=== PATIENT | male | born 1965 | race African-American/Black ===

== ENCOUNTER 2017-05-12 06:59 | Inpatient (IN) ==
--- NOTE | 2017-05-12 07:26 | EKG Report ---
Stationary ECG Study [facility] ER Test Date: 05/12/2017 7:17:50 AM Pat Name: PETTY ALVARENGA Department: Room: Gender: M [employer]: : 1965 Requested by: Castillo Ogden Order Number: [id number] Reading MD: CAROLA ROSE Intervals [place] Rate: 62 P: 86 [place]: 153 QRS: 76 QRSD: 101 T: 90 QT: 498 QTc: 504 Interpretive Statements SINUS RHYTHM PROLONGED QT INTERVAL Electronically Signed On 05-12-17 18:18:22 CDT by CAROLA ROSE [email or web address]
--- NOTE | 2017-05-12 07:53 | XRay Report ---
XR chest 1V portable Indication: Shortness of breath Comparison: 06 May 2017 Findings: The heart and mediastinum are stable in size and configuration. The pulmonary vascularity is slightly increased with bilateral increased interstitial lung density. No other lung infiltrates, effusions, pneumothorax or other abnormality is demonstrated. Impression: Findings suggest mild cardiac decompensation. PROCEDURE INTERPRETED AT [facility] DEPARTMENT OF RADIOLOGY Final Report Signed by: Dr. Yasmani Mejia
[2017-05-12 08:17] LABS: Basophils # 0.1 10*3/uL (0.0-0.2); Basophils % 0.7 % (0.0-0.8); Eosinophils # 0.2 10*3/uL (0.0-0.87); Eosinophils % 2.7 % (0.00-10.9); Hematocrit 26.7 VOL% (42.0-52.0); Hemoglobin 8.3 GM/DL (14.0-18.0); Immature Granulocytes % 0.6 %; Immature Granulocytes Absolute 0.05 #; Lymphocytes # 1.2 10*3/uL (1.4-4.0); Lymphocytes % 15.4 % (21.2-54.2); Mean Corpuscular HGB Conc 31.1 GM/DL (32-36); Mean Corpuscular Hemoglobin 29 PG (27-34); Mean Corpuscular Volume 94.3 FL (87-102); Mean Platelet Volume 10.6 FL (9.6-12.0); Monocytes # 0.4 10*3/uL (0.11-0.8); Monocytes % 5.4 % (1.7-12.7); NRBC # 0.03 10*3/uL; Neutrophils % 75.2 % (38.7-73.9); Platelet Count 156 T/CUMM (130-400); Red Blood Count 2.83 MC/CUMM (3.8-5.5); Red Cell Distribution Width 19.7 % (9.3-17.3)
[2017-05-12 09:19] LABS: Bilirubin,Total 0.9 MG/DL (0.2-1.0); Calcium 7.8 MG/DL (8.5-10.1); Total Protein 7.2 G/DL (6.4-8.3)
[2017-05-12 09:20] LABS: Albumin 3.2 G/DL (3.4-5.0); Osmolality,Calculated 288.5 MOS/KG (273-304); Potassium 4.1 MMOL/L (3.5-5.1); Troponin I Only 0.02 NG/ML (0.00-0.045)
[2017-05-12 09:25] LABS: Eosinophils 2 % (0-10); Lymphocytes 11 % (20-55); Segmented Neutrophils 83 % (50-85); Total Cells Counted 100
[2017-05-12 09:26] LABS: Hypochromasia 1+; Macrocytosis Slight; Ovalocytes Slight; Polychromasia Slight
[2017-05-12 09:27] LABS: Platelet Estimate Adequate
[2017-05-12] MEDS ORDERED: MORPHINE 2 MG/1 ML SYRINGE IV STA (11:05)
[2017-05-12] MEDS ORDERED: MORPHINE 2 MG/1 ML SYRINGE ONE (11:08)
--- NOTE | 2017-05-12 11:08 | Emergency Department Note ---
IBright Brittany, am scribing for, and in the presence of, Jon Arredondo MD 07:13. Arnulfo Patel Doug C, MD, personally performed the services described in this documentation, ascribed by Gracie Novoa in my presence, and it is both accurate and complete . Arrival - Arrival Chief Complaint: Non-Specific ED Nursing Triage Note: dialysis said that the pt went unresponsive and quit breathing. cpr was done on pt. pt was starting to talk when ems got there. pt is aao x 3at triage Mode of Arrival: Stretcher Limitations: No Limitations Source: Patient, RN Notes Reviewed - History of Present Illness HPI Narrative: Patient is a 52-year-old black male who is on dialysis this morning and he states that been going about 30 minutes when he felt hot. He states the next thing he knew people were standing around him an ambulance was there to pick him up. According to dialysis nurses he became unresponsive and apneic. CPR was begun at the scene but he eventually became responsive and states his only problem now is his chest is sore from his CPR. He had no shortness of breath, chest pain, nausea or diaphoresis prior to this event. He states he has noticed that he has been getting weak with dialysis for the last several treatments. Patient denies any shortness of breath presently has not had any nausea vomiting. Allergies/Adverse Reactions: Allergies Allergy/AdvReac Type Severity Reaction Status Date / Time No Known Allergies Allergy Verified 06/16/15 15:27 Home Medications: Home Medications Medication Instructions Recorded Confirmed Type Calcium Acetate [Phoslo] 667 mg PO MOWEFR 04/13/17 05/12/17 History Metoprolol Tartrate Tab [Lopressor 100 mg PO BID 04/13/17 05/12/17 History Tab] NIFEdipine XL TAB [Procardia Xl] 60 mg PO QAM 04/13/17 05/12/17 History Pro Renal Vitamin 1 tablet PO QOTHER DAY 04/13/17 05/12/17 History cloNIDine TAB [Catapres Tab] 0.2 mg PO BID 04/13/17 05/12/17 History Pantoprazole Tab [Protonix Tab] 40 mg PO QAM 05/06/17 05/12/17 History Review of System - Review of System 12 point system: reviewed and no additional remarkable complaints except as stated - Review of System Constitutional: Present: diaphoresis, other (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 Absent: chills, fever Eyes: Absent: vision change Head/Ears/Nose/Throat: Absent: nasal drainage, sore throat Respiratory: Present: respiratory distress Cardiovascular: Present: chest pain, other Gastrointestinal: Absent: abdominal pain, nausea, vomiting, diarrhea, constipation Genitourinary male: Absent: urgency, dysuria, frequency Musculoskeletal: Absent: arm pain, back pain, leg pain, neck pain Skin: Absent: rash Neurological: Absent: headache Psychiatric: Absent: anxiety, depression Hematological/Lymphatic: Absent: easy bleeding, easy bruising Medical,Surgical,& Family Hx - Medical History Cardio: History of: Hypertension No history of: Cardiac Dysrhythmia, CHF, [place], Pacemaker Neurology: No history of: Migraine, Seizures HEENT: No history of: Glaucoma Endocrine: History of: Diabetes Mellitus (NIDDM) (DIET CONTROLED) Renal: History of: Dialysis (MWF), Renal Failure (on hemodialysis) Genitourinary: History of: Bladder Problem (very ilttle urine) Gastrointestinal: History of: GERD No history of: Hepatitis, Liver Problems Hematology: History of: Anemia No history of: Blood Transfusion Reaction Other: History of: Miscellaneous Medical Problems (06/2014 Bacterial Meningitis) No history of: Anesthesia Reactions, Cancer - Surgical History Cardiac Surgeries: Patient Denies: Cardiac Catheterization, Carotid Endarterectomy HEENT Surgeries: Surgical HX of: Eye Surgery (laser) Patient denies: Carotid Endarterectomy, Tonsilectomy & Adenoidectomy Abdominal Surgeries: Surgical HX of: Cholecystectomy Patient denies: Appendectomy, Colonoscopy, EGD, Hernia Repair Orthopedic Surgeries: Patient denies;: Orthopedic Surgery - Family History Family History: Denies;: Family Cancer - Social History Smoking Status: Smoker, status unknown Frequency of Alcohol Use: None Type of Drug Use: None Exam Vital Signs: Vital Signs Temperature 97.0 F L 05/12/17 07:00 Pulse Rate 62 05/12/17 10:15 Respiratory Rate 20 05/12/17 10:15 Blood Pressure 158/85 05/12/17 10:15 O2 Sat by Pulse Oximetry 96 05/12/17 10:15 - General General appearance: alert, in no apparent distress - Head Head exam: Present: atraumatic, normocephalic, normal inspection - Eye Eye exam: Present: normal appearance, PERRL, EOMI - ENT ENT exam: Present: normal exam, normal oropharynx - Neck Neck exam: Present: normal inspection, full ROM, trachea midline - Chest Chest inspection: Present: symmetric chest wall rise, tenderness (CW tenderness to palpation) - Respiratory Respiratory exam: Present: normal lung sounds bilaterally, other (oxygen saturation of 89% on monitor) - Cardiovascular Cardiovascular exam: Present: regular rate, normal rhythm, normal heart sounds - Abdominal Exam Abdominal exam: Present: soft, normal bowel sounds. Absent: tenderness - Extremities Exam Extremities exam: Present: normal inspection - Back Exam Back exam: Present: normal inspection - Neurological Exam Neurological exam: Present: alert, oriented X3, CN II-XII intact. Absent: motor sensory deficit - Psychiatric Psychiatric exam: Present: normal affect, normal mood - Skin Skin exam: Present: warm, dry Course Course Narrative: Patient's clinical condition, laboratory and radiographic results were discussed Dr. Storm Ryan and Shante who was covering the hospitalist service. Patient will be evaluated for admission. Results - Labs CBC & BMP: 05/12/17 08:07 05/12/17 08:07 Lab Results: I have reviewed the patients labs Labs: Laboratory Tests 05/12/17 08:07 WBC 8.0 RBC 2.83 L Hgb 8.3 L Hct 26.7 L MCHC 31.1 L RDW 19.7 H Plt Count 156 Neut % (Auto) 75.2 H Lymph % (Auto) 15.4 L Lymph # (Auto) 1.2 L Laboratory Tests 05/12/17 05/12/17 08:07 08:07 Sodium 139 Potassium 4.1 Chloride 98 Carbon Dioxide 29 Anion Gap 16.1 H BUN 31 H Creatinine 9.43 H BUN/Creatinine Ratio 3.00 L Glucose 190 H Calcium 7.8 L ALT 14 L Alkaline Phosphatase 131 H B-Natriuretic Peptide 1083 H Albumin 3.2 L Globulin 4.0 H Albumin/Globulin Ratio 0.8 L Laboratory Tests 05/12/17 08:07 Total Counted 100 Segmented Neutrophils 83 Lymphocytes 11 L Monocytes 4 Eosinophils 2 Platelet Estimate Adequate Polychromasia Slight Hypochromasia 1+ Macrocytosis Slight Ovalocytes Slight - EKG EKG results: interpreted by ERMD, sinus rhythm (62 bpm 62 bpm), no acute changes - Diagnostic Findings Procedure: Chest x-ray: report reviewed by me (Findings suggest mild cardiac decompensation. ) Disposition Clinical Impression: Syncope Case discussed with: patient, patient's family Disposition: Still a Patient Condition: Stable Time of Disposition: 11:07
--- NOTE | 2017-05-12 11:39 | Hospitalist History & Physical ---
Assessment and Plan (1) Cardiac arrest, cause unspecified Status: Acute Assessment and plan: The patient was initially unresponsive and became asystole. CPR was initiated immediately and the patient's pulse was regained after 1 round. This occurred during the hemodialysis treatment. The patient reported that he had been scheduled for a cardiology consultation on next week. Initial troponins were noted at 0 0.020. We will obtain a echocardiogram and serial cardiac enzymes. Current Visit: Yes (2) Syncope Status: Acute Assessment and plan: The patient's syncopal episode was likely secondary to cardiac abnormality. We will obtain CT head for good measures. In addition, we will conduct a syncope workup. Current Visit: Yes (3) ESRD (end stage renal disease) on dialysis Status: Acute Assessment and plan: The patient's hemodialysis treatment was not completed due to the acute cardiac event. We have spoken with nephrology. Agree with nephrology's plan for continuation of hemodialysis this afternoon. Current Visit: No (4) Tobacco dependence Status: Acute Assessment and plan: Patient reports current nicotine use. Spoke with patient in great detail regarding the need to refrain from nicotine use. Patient acknowledges the need to refrain from nicotine use however is not interested in cessation at this time. Nicotine patch is ordered as needed during the clinical encounter. Current Visit: No History of Present Illness Chief complaint: Unresponsiveness History of present illness: This is a chronically ill 52-year-old male that presented to the ED at [facility] this morning via EMS for the further evaluation of unresponsiveness. The patient has a medical history significant for hypertension, end-stage renal disease, [id number] diabetes mellitus, gastroesophageal reflux disease, bacterial meningitis, current nicotine use, and anemia. Patient has a surgical history significant for laser eye surgery, cholecystectomy, and arterial venous fistula formation. Apparently, the patient was undergoing his dialysis treatment when the onset of symptoms occurred. The patient reported that he experienced an sudden increase in body temperature prompting him to summonds the nursing staff. Per EMS report, the patient became unresponsive and was found to be asystole. Cardiopulmonary resuscitation and oxygenation was initiated. The patient regained his pulse after 1 round of CPR. The patient was subsequently transported to [facility] for further evaluation. At the time of ED presentation, the patient was alert oriented and verbally responsive. The patient verbalized a complaint of chest discomfort but attributed to the recent CPR. He denied any significant cardiac episodes in the past. He reported no recent shortness of breath, nausea, chest pain, diaphoresis, or epigastric discomfort. In addition, the patient reported that he had been recently advised by his clinical review specialist Dr. Storm Ryan that he could possibly benefit from a cardiology consultation. He reported that the cardiology consultation is scheduled for next week. Labs were obtained at the time of ED presentation which were essentially remarkable for a hemoglobin of 8.3, hematocrit 26.7, platelet count of 156, BUN of 31, creatinine 9.43, glucose 190, calcium 7.8, troponin 0 0.20, and BNP at 1083. Chest x-ray reported mild cardiac decompensation. After brief discussion with both Dr. Arredondo and Dr. Sigala, the patient will be admitted to the hospitalist service for continuation of care. A nephrology and cardiology consultation has been requested to assist in the management of the patient during the clinical encounter. Home medications have been reviewed and reconciled. CODE STATUS discussed; patient is a FULL CODE. Home Medications Medication Instructions Recorded Confirmed Type Calcium Acetate [Phoslo] 667 mg PO MOWEFR 04/13/17 05/12/17 History Metoprolol Tartrate Tab [Lopressor 100 mg PO BID 04/13/17 05/12/17 History Tab] NIFEdipine XL TAB [Procardia Xl] 60 mg PO QAM 04/13/17 05/12/17 History Pro Renal Vitamin 1 tablet PO QOTHER DAY 04/13/17 05/12/17 History cloNIDine TAB [Catapres Tab] 0.2 mg PO BID 04/13/17 05/12/17 History Pantoprazole Tab [Protonix Tab] 40 mg PO QAM 05/06/17 05/12/17 History Allergies Allergy/AdvReac Type Severity Reaction Status Date / Time No Known Allergies Allergy Verified 06/16/15 15:27 Medical,Surgical,& Family Hx - Medical History Cardio: History of: Hypertension No history of: Cardiac Dysrhythmia, CHF, [place], Pacemaker Neurology: No history of: Migraine, Seizures HEENT: No history of: Glaucoma Endocrine: History of: Diabetes Mellitus (NIDDM) (DIET CONTROLED) Renal: History of: Dialysis (MWF), Renal Failure (on hemodialysis) Genitourinary: History of: Bladder Problem (very ilttle urine) Gastrointestinal: History of: GERD No history of: Hepatitis, Liver Problems Hematology: History of: Anemia No history of: Blood Transfusion Reaction Other: History of: Miscellaneous Medical Problems (06/2014 Bacterial Meningitis) No history of: Anesthesia Reactions, Cancer - Surgical History Cardiac Surgeries: Patient Denies: Cardiac Catheterization, Carotid Endarterectomy HEENT Surgeries: Surgical HX of: Eye Surgery (laser) Patient denies: Carotid Endarterectomy, Tonsilectomy & Adenoidectomy Abdominal Surgeries: Surgical HX of: Cholecystectomy Patient denies: Appendectomy, Colonoscopy, EGD, Hernia Repair Orthopedic Surgeries: Patient denies;: Orthopedic Surgery - Family History Family History: Denies;: Family Cancer - Social History Smoking Status: Smoker, status unknown Frequency of Alcohol Use: None Type of Drug Use: None Exam - Constitutional Vitals: Period Temp Pulse Resp BP Sys/Tran Pulse Ox Last 24 Hr 97.0 F-97.0 F 59-65 18-20 145-170/72-94 91-100 General appearance: normal weight, no acute distress - Head Head exam: Present: normal inspection, normocephalic - Eye Eye exam: Present: EOMI. Absent: conjunctival injection Pupils: Present: TRINY, normal accommodation - ENT ENT exam: Present: normal exam, normal external ear exam, normal oropharynx - Neck Neck exam: Present: normal inspection. Absent: lymphadenopathy, meningismus, tenderness, thyromegaly - Respiratory Respiratory exam: Present: chest wall tenderness, decreased breath sounds - Cardiovascular Cardiovascular exam: Present: regular rate and rhythm, other. Absent: bradycardia, carotid bruit, diastolic murmur, gallop, JVD, rubs, systolic murmur - GI/Abdominal GI/Abdominal exam: Present: normal bowel sounds, soft - Extremities Exam Extremities exam: Present: normal inspection, full ROM, other - Back Exam Back exam: Present: normal inspection - Neurological Exam Neurological exam: Present: alert, oriented X3, CN II-XII intact - Psychiatric Psychiatric exam: Present: normal affect, normal mood - Skin Skin exam: Present: normal color, warm, dry Results - Labs CBC & BMP: 05/12/17 08:07 05/12/17 08:07 Lab Results: I have reviewed the past 24 hour labs
[2017-05-12] MEDS ORDERED: GLUCAGON 1 MG VIAL IM PRN (12:06)
[2017-05-12] MEDS ORDERED: DEXTROSE 50% 25 GM/50 ML SYRINGE IV PRN (12:06)
[2017-05-12] MEDS ORDERED: SODIUM CHLORIDE 0.9% 250 ML IV PRN (12:09)
[2017-05-12] MEDS ORDERED: MAGNESIUM SULF RIDER 2 GM in PREMIX 1 EACH IV ONE (12:30)
--- NOTE | 2017-05-12 12:31 | EKG Report ---
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
--- NOTE | 2017-05-12 13:37 | Ultrasound Report ---
Carotid artery ultrasound Indication: Syncope Comparison: None available Color Doppler flow and spectral analysis was performed. Findings: Small amount of atherosclerotic plaque is present in both proximal internal carotid arteries. Right peak systolic velocity: Right CCA:70.3 cm/s. Right proximal Internal Carotid Artery is 58.6 cm/s. Ratio of flow is 1.1 Right distal Internal Carotid is 74.2 cm/s . Left peak systolic velocity: Left CCA:71.6 cm/s. Left proximal Internal carotid Artery is 54.6 cm/s . Ratio of flow is 1.2 Left distal Internal carotid Artery is 88.6cm/s Bilateral antegrade vertebral flow is seen. Impression: No evidence of hemodynamically significant stenosis is seen, 0-49% estimated stenosis. Consensus conference on the carotid ultrasound criteria used. Ultrasound images were captured and stored. PROCEDURE INTERPRETED AT [facility] DEPARTMENT OF RADIOLOGY Final Report Signed by: Dr. Yasmani Mejia
--- NOTE | 2017-05-12 13:39 | Ultrasound Report ---
Venous Doppler ultrasound bilateral lower extremities Indication: Cardiac arrest Comparison: None available Findings: No evidence of echogenic, noncompressible thrombus seen in the visualized veins of the extremities. Color Doppler venous waveform pattern is within normal limits. Impression: No evidence of deep venous thrombosis. Ultrasound images stored and captured. PROCEDURE INTERPRETED AT [facility] DEPARTMENT OF RADIOLOGY Final Report Signed by: Dr. Yasmani Mejia
--- NOTE | 2017-05-12 13:49 | Cardiology Consult Note ---
Assessment and Plan (1) Cardiac arrest, cause unspecified Status: Acute Assessment and plan: 52-year-old black male, presenting with an episode of unresponsiveness, which resolved with some minutes of CPR. No EKG. Normal troponin, no ischemic EKG changes. Recent onset, intermittent palpitations. Uncontrolled hypertension., End-stage renal disease on hemodialysis. -The events may have been syncope due to hypotension related to dialysis, although we cannot rule out true aborted SCD, likely due to bradyarrhythmic cause. -Echo. -He will need ischemic evaluation. Recheck troponin, rule out ACS. We can pursue a stress test. -If no reversible etiology, he will need an EP study plus minus long-term monitoring. Depending on the workup, he could be a candidate for primary prevention ICD, SICD given his ESRD -Poorly controlled hypertension. Increase nifedipine ER to 60 mg twice daily. -Borderline QTc prolongation resolved. Continue to monitor on telemetry. Avoid prolonging drugs. Current Visit: Yes (2) HTN (hypertension) Status: Acute Current Visit: Yes (3) ESRD (end stage renal disease) on dialysis Status: Acute Current Visit: No (4) Tobacco dependence Status: Acute Current Visit: No History of Present Illness - Data of Consult Patient: new to [facility] Consult date: 05/12/17 - Consult Narrative Reason for consult: syncope, ?cardiac arrest History of present illness: Mr. De Leon is a 52 year old black male, end-stage renal on hemodialysis, due to hypertensive renal disease. He is not aware of prior cardiac issues. Today, he was undergoing dialysis and suddenly felt unwell and became unresponsive. CPR was administered for 3 minutes and then he became responsive. He was not on a monitor and no shocks were delivered. Although there was a mention of asystole, no EKG documentation of arrhythmia. On admission, initial EKG showed borderline prolonged QTC of around 500 ms, now it is normal, with slightly peaked T waves. No major electrolyte abnormalities. He did not have chest pain prior to the event or recently, but the chest wall felt sore after CPR. He noted some palpitations, sometimes related to dialysis recently. He is still making some urine, denies shortness of breath with swelling. Troponin normal, BNP elevated, he is anemic. Reviewing his medical records, he is currently not on medications, that would significantly affect QTc. DVT study was normal, carotid ultrasound showed no significant stenosis. His blood pressure is usually poorly controlled. CC: Jones Jasso - Home Medications and Allergies Home Medications: Home Medications Medication Instructions Recorded Confirmed Type Calcium Acetate [Phoslo] 667 mg PO MOWEFR 04/13/17 05/12/17 History Metoprolol Tartrate Tab [Lopressor 100 mg PO BID 04/13/17 05/12/17 History Tab] NIFEdipine XL TAB [Procardia Xl] 60 mg PO QAM 04/13/17 05/12/17 History Pro Renal Vitamin 1 tablet PO QOTHER DAY 04/13/17 05/12/17 History cloNIDine TAB [Catapres Tab] 0.2 mg PO BID 04/13/17 05/12/17 History Pantoprazole Tab [Protonix Tab] 40 mg PO QAM 05/06/17 05/12/17 History Allergies/Adverse Reactions: Allergies Allergy/AdvReac Type Severity Reaction Status Date / Time No Known Allergies Allergy Verified 06/16/15 15:27 12 point system: reviewed and no additional remarkable complaints except as stated Medical,Surgical,& Family Hx - Medical History Cardio: History of: Hypertension No history of: Cardiac Dysrhythmia, CHF, [place], Pacemaker Neurology: No history of: Migraine, Seizures HEENT: No history of: Glaucoma Endocrine: History of: Diabetes Mellitus (NIDDM) (DIET CONTROLED) Renal: History of: Dialysis (MWF), Renal Failure (on hemodialysis) Genitourinary: History of: Bladder Problem (very ilttle urine) Gastrointestinal: History of: GERD No history of: Hepatitis, Liver Problems Hematology: History of: Anemia No history of: Blood Transfusion Reaction Other: History of: Miscellaneous Medical Problems (06/2014 Bacterial Meningitis) No history of: Anesthesia Reactions, Cancer - Surgical History Cardiac Surgeries: Patient Denies: Cardiac Catheterization, Carotid Endarterectomy HEENT Surgeries: Surgical HX of: Eye Surgery (laser) Patient denies: Carotid Endarterectomy, Tonsilectomy & Adenoidectomy Abdominal Surgeries: Surgical HX of: Abdominal Surgery, Cholecystectomy Patient denies: Appendectomy, Colonoscopy, EGD, Hernia Repair Reproductive Surgeries: Patient denies;: Genitourinary Surgery Orthopedic Surgeries: Patient denies;: Orthopedic Surgery - Family History Family History: Denies;: Family Cancer - Social History Smoking Status: Smoker, status unknown Frequency of Alcohol Use: None Type of Drug Use: None Physical Examination Vital Signs Temp Pulse Resp BP Pulse Ox 97.0 F L 65 18 170/94 91 L 05/12/17 07:00 05/12/17 07:00 05/12/17 07:00 05/12/17 07:00 05/12/17 07:00 General: Present: Appears Well, No Apparent Distress HEENT: Present: Normocephaly, Mucus Membranes Moist Neck: Present: Supple Neck, No JVD/HJR Cardiac: Present: Regular Rate, Regular Rhythm, Systolic Murmur Lungs: Present: Normal Breath Sounds Neuro: Present: Grossly Intact Abdomen: Present: Soft, Active Bowel Sounds Skin: Present: Other (Hemodialysis fistula) Extremities: Present: No Clubbing, No Cyanosis, No Edema Result/EKG - Labs CBC & BMP: 05/12/17 08:07 05/12/17 08:07 Lab Results: I have reviewed the past 24 hour labs Labs: Laboratory Results - last 24 hr 05/12/17 05/12/17 05/12/17 08:07 08:07 08:07 WBC 8.0 RBC 2.83 L Hgb 8.3 L Hct 26.7 L MCV 94.3 MCH 29 MCHC 31.1 L RDW 19.7 H Plt Count 156 MPV 10.6 Neut % (Auto) 75.2 H Lymph % (Auto) 15.4 L Powell % (Auto) 5.4 Eos % (Auto) 2.7 Baso % (Auto) 0.7 Neut # (Auto) 6.0 Lymph # (Auto) 1.2 L Powell # (Auto) 0.4 Eos # (Auto) 0.2 Baso # (Auto) 0.1 Total Counted 100 Immature Gran % 0.6 Nucleated RBC % 0.4 Immature Gran # 0.05 Segmented Neutrophils 83 Lymphocytes 11 L Monocytes 4 Eosinophils 2 Nucleated RBCs # 0.03 Platelet Estimate Adequate Immature Plt Fraction 0.0 Polychromasia Slight Hypochromasia 1+ Macrocytosis Slight Ovalocytes Slight Sodium 139 Potassium 4.1 Chloride 98 Carbon Dioxide 29 Anion Gap 16.1 H BUN 31 H Creatinine 9.43 H GFR Calculation 7 BUN/Creatinine Ratio 3.00 L Glucose 190 H Calculated Osmolality 288.5 Calcium 7.8 L Total Bilirubin 0.90 AST 26 ALT 14 L Alkaline Phosphatase 131 H Troponin I 0.020 B-Natriuretic Peptide 1083 H Total Protein 7.2 Albumin 3.2 L Globulin 4.0 H Albumin/Globulin Ratio 0.8 L Blood Type Antibody Screen Crossmatch 05/12/17 05/12/17 08:07 Unknown WBC RBC Hgb Hct MCV MCH MCHC RDW Plt Count MPV Neut % (Auto) Lymph % (Auto) Powell % (Auto) Eos % (Auto) Baso % (Auto) Neut # (Auto) Lymph # (Auto) Powell # (Auto) Eos # (Auto) Baso # (Auto) Total Counted Immature Gran % Nucleated RBC % Immature Gran # Segmented Neutrophils Lymphocytes Monocytes Eosinophils Nucleated RBCs # Platelet Estimate Immature Plt Fraction Polychromasia Hypochromasia Macrocytosis Ovalocytes Sodium Potassium Chloride Carbon Dioxide Anion Gap BUN Creatinine GFR Calculation BUN/Creatinine Ratio Glucose Calculated Osmolality Calcium Total Bilirubin AST ALT Alkaline Phosphatase Troponin I B-Natriuretic Peptide Total Protein Albumin Globulin Albumin/Globulin Ratio Blood Type B POSITIVE B POSITIVE Antibody Screen Negative Crossmatch See Detail - EKG EKG results: interpreted by me
[2017-05-12] MEDS ORDERED: CALCIUM GLUCONATE 1,000 MG in SODIUM CHLORIDE 0.9% 100 ML IV ONE (14:00)
[2017-05-12] MEDS ORDERED: MORPHINE 2 MG/1 ML SYRINGE IV PRN (16:59)
[2017-05-12] MEDS ORDERED: ZALEPLON 5 MG CAPSULE PO PRN (17:01)
[2017-05-12] MEDS ORDERED: LORazepam 2 MG/1 ML VIAL IV PRN (17:01)
[2017-05-12] MEDS: CALCIUM ACETATE 667 MG CAPSULE PO SCH (17:15)
[2017-05-12] MEDS: INSULIN LISPRO 100 UNIT/ML SUBCUT SCH ×2 (17:36→20:26)
[2017-05-12 17:57] LABS: Hematocrit 27.4 VOL% (42.0-52.0); Hemoglobin 8.4 GM/DL (14.0-18.0)
[2017-05-12] MEDS ORDERED: diphenhydrAMINE CAP 25 MG CAPSULE PO SCH (18:00)
[2017-05-12] MEDS: hydrALAZINE 20 MG/1 ML VIAL IV PRN (18:06)
[2017-05-12 18:58] LABS: Hepatitis B Surface Ag Quant < 0.10 Index; Hepatitis B Surface Ag Result Negative (Negative)
--- NOTE | 2017-05-12 19:15 | ECHO Report ---
See De Leon 05/12/2017 Exam Date: 12:18 Referring Physician: Vinita Cruz Technologist: JUSTINE Age: 52 Ht (in): 64 Wt (lb): 150 MExam Location: [facility] Gender: Echo [id number]: Cardiac arrest, cause unspecified, Indications:Syncope and collapse, End stage renal disease, Nicotine dependence, cigarettes, in remission, Essential (primary) hypertension, NIDDM BP: 195 / 101 HR: 65 SinusRhythm: Technical Quality: IMPRESSIONS Normal left ventricular cavity size. Mild concentric hypertrophy. Normal systolic function, estimated left ventricular ejection fraction 55%. Grade 3 diastolic dysfunction. The right ventricle is mildly dilated, with normal systolic function. Mild biatrial enlargement. Mild pulmonary hypertension. MEASUREMENTS (Male / Female) Normal Values 2D ECHO LV Diastolic Diameter PLAX 4.9 cm 4.2 - 5.9 / 3.9 - 5.3 cm LV Systolic Diameter PLAX 3.8 cm LV Fractional Shortening PLAX 23.1 % IVS Diastolic Thickness 1.0 cm 0.6 - 1.0 / 0.6 - 0.9 cm LVPW Diastolic Thickness 1.0 cm 0.6 - 1.0 / 0.6 - 0.9 cm RV Internal Dim ED PLAX 3.8 cm Aortic Root Diameter 3.0 cm LA Systolic Diameter LX 3.2 cm 3.0 - 4.0 / 2.7 - 3.8 cm DOPPLER TR Peak Velocity 327.0 cm/s TR Peak Gradient 42.8 mmHg FINDINGS Left Ventricle Normal left ventricular cavity size. Mild concentric hypertrophy. Normal systolic function, estimated left ventricular ejection fraction 55%. Grade 3 diastolic dysfunction. Right Ventricle The right ventricle is mildly dilated, with normal systolic function. Right Atrium The right atrium is mildly dilated Left Atrium Left atrium is mildly dilated. Mitral Valve Morphologically normal mitral valve. Mild mitral valve regurgitation. Aortic Valve Morphologically normal aortic valve without significant sclerosis or stenosis. There is no aortic regurgitation. Tricuspid Valve Morphologically normal tricuspid valve. Mild tricuspid valve regurgitation. Tricuspid regurgitation velocities suggest a PAP of 43 mmHg plus right atrial pressure. Pulmonic Valve Morphologically normal pulmonic valve without significant stenosis. There is no pulmonic regurgitation. Pericardium Normal pericardium without effusion. Aorta Normal ascending aorta dimension. Jacek Booth (Electronically Signed) 12 May 2017 Final Date: 19:14
[2017-05-12] MEDS: ENOXAPARIN 40 MG/0.4 ML SYRINGE SUBCUT SCH (20:20)
[2017-05-12] MEDS: METOPROLOL TARTRATE 100 MG TABLET PO SCH (20:21)
[2017-05-12 20:33] LABS: Hematocrit 25.4 VOL% (42.0-52.0); Hemoglobin 7.8 GM/DL (14.0-18.0)
[2017-05-12] MEDS ORDERED: diphenhydrAMINE CAP 25 MG CAPSULE PO PRN (20:42)
--- NOTE | 2017-05-12 21:24 | EKG Report ---
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
--- NOTE | 2017-05-12 21:51 | Nephrology Consult Note ---
History of Present Illness Chief complaint: ESRD, syncope History of present illness: Mr. De Leon is a 52 year old male with ESRD secondary to hypertension. He suffered a syncopal episode during dialysis this morning. Blood pressure was normal at the start of dialysis. He was on dialysis less than 30 minutes when he states he felt hot and then passed out. Dialysis nurses report he had no palpable pulse and CPR was started. Automatic defibrillator was placed and did not fire. He was awake and responsive on presentation to the ER. He has reported having a full sensation in his epigastric area recently as an outpatient. EGD was done to evaluate this and was negative. He also reports some IRIZARRY but no shortness of breath at rest, no orthopnea and no chest pain. Home Medications Medication Instructions Recorded Confirmed Type Calcium Acetate [Phoslo] 667 mg PO MOWEFR 04/13/17 05/12/17 History Metoprolol Tartrate Tab [Lopressor 100 mg PO BID 04/13/17 05/12/17 History Tab] NIFEdipine XL TAB [Procardia Xl] 60 mg PO QAM 04/13/17 05/12/17 History Pro Renal Vitamin 1 tablet PO QOTHER DAY 04/13/17 05/12/17 History cloNIDine TAB [Catapres Tab] 0.2 mg PO BID 04/13/17 05/12/17 History Pantoprazole Tab [Protonix Tab] 40 mg PO QAM 05/06/17 05/12/17 History Allergies Allergy/AdvReac Type Severity Reaction Status Date / Time No Known Allergies Allergy Verified 06/16/15 15:27 Medical,Surgical,& Family Hx - Medical History Cardio: History of: Hypertension No history of: Cardiac Dysrhythmia, CHF, [place], Pacemaker Neurology: No history of: Migraine, Seizures HEENT: No history of: Glaucoma Endocrine: History of: Diabetes Mellitus (NIDDM) (DIET CONTROLED) Renal: History of: Dialysis (MWF), Renal Failure (on hemodialysis) Genitourinary: History of: Bladder Problem (very ilttle urine) Gastrointestinal: History of: GERD No history of: Hepatitis, Liver Problems Hematology: History of: Anemia No history of: Blood Transfusion Reaction Other: History of: Miscellaneous Medical Problems (06/2014 Bacterial Meningitis) No history of: Anesthesia Reactions, Cancer - Surgical History Cardiac Surgeries: Patient Denies: Cardiac Catheterization, Carotid Endarterectomy HEENT Surgeries: Surgical HX of: Eye Surgery (laser) Patient denies: Carotid Endarterectomy, Tonsilectomy & Adenoidectomy Abdominal Surgeries: Surgical HX of: Abdominal Surgery, Cholecystectomy Patient denies: Appendectomy, Colonoscopy, EGD, Hernia Repair Reproductive Surgeries: Patient denies;: Genitourinary Surgery Orthopedic Surgeries: Patient denies;: Orthopedic Surgery - Family History Family History: Denies;: Family Cancer - Social History Smoking Status: Smoker, status unknown Frequency of Alcohol Use: None Type of Drug Use: None Review of Systems 12 point system: reviewed and no additional remarkable complaints except as stated Exam - Vital Signs Vital signs: Period Temp Pulse Resp BP Sys/Tran Pulse Ox Last 24 Hr 97.0 F-97.7 F 59-74 12-20 145-202/72-112 91-100 Exam: Gen.: Alert and oriented x3. ENT: Pupils equal round reactive to light. EOMs intact. Mucous membranes moist. Neck: Supple. No JVD or bruit. Cardiovascular: Regular rate and rhythm. No murmur rub or gallop Lungs: Clear Abdomen: Soft. Nontender. Positive bowel sounds. No organomegaly Extremities: No edema Results - Labs CBC & BMP: 05/12/17 20:26 05/12/17 08:07 Assessment and Plan (1) ESRD (end stage renal disease) on dialysis Status: Acute Assessment and plan: 52-year-old man with: * Syncope. No documented dysrhythmia. Initial cardiac enzymes negative. * ESRD. Dialysis will be postponed until tomorrow * Anemia. Transfuse during dialysis * Hypertension * Diabetes mellitus Current Visit: No (2) Anemia Status: Acute Current Visit: Yes (3) HTN (hypertension) Status: Acute Current Visit: Yes (4) Syncope Status: Acute Current Visit: Yes
[2017-05-13 00:42] LABS: Basophils # 0.1 10*3/uL (0.0-0.2); Eosinophils # 0.2 10*3/uL (0.0-0.87); Eosinophils % 2.3 % (0.00-10.9); Hematocrit 23.6 VOL% (42.0-52.0); Hemoglobin 7.2 GM/DL (14.0-18.0); Immature Granulocytes % 0.8 %; Immature Granulocytes Absolute 0.07 #; Lymphocytes # 1.5 10*3/uL (1.4-4.0); Lymphocytes % 17.5 % (21.2-54.2); Mean Corpuscular HGB Conc 30.5 GM/DL (32-36); Mean Corpuscular Hemoglobin 29 PG (27-34); Mean Corpuscular Volume 93.3 FL (87-102); Mean Platelet Volume 11.3 FL (9.6-12.0); Monocytes # 0.4 10*3/uL (0.11-0.8); Monocytes % 5.1 % (1.7-12.7); NRBC # 0.05 10*3/uL; Neutrophils # 6.2 10*3/uL (1.4-7.4); Neutrophils % 73.3 % (38.7-73.9); Platelet Count 159 T/CUMM (130-400); Red Blood Count 2.53 MC/CUMM (3.8-5.5); Red Cell Distribution Width 19.9 % (9.3-17.3); White Blood Count 8.4 T/CUMM (4-12)
[2017-05-13] MEDS: hydrALAZINE 20 MG/1 ML VIAL IV PRN ×2 (01:13→19:51)
[2017-05-13 01:16] LABS: Albumin 2.9 G/DL (3.4-5.0); Bilirubin,Total 1.1 MG/DL (0.2-1.0); Calcium 7.7 MG/DL (8.5-10.1); Magnesium 2.8 MG/DL (1.8-2.4); Potassium 4.4 MMOL/L (3.5-5.1); Total Protein 6.6 G/DL (6.4-8.3)
[2017-05-13 05:19] LABS: Hematocrit 24.3 VOL% (42.0-52.0); Hemoglobin 7.5 GM/DL (14.0-18.0)
--- NOTE | 2017-05-13 08:29 | Hospitalist Progress Note ---
Assessment and Plan - Time spent with patient Time spent with patient: Less than 30 minutes (1) Cardiac arrest, cause unspecified Status: Acute Assessment and plan: Patient has been followed by Dr. Soto. His notes and recommendations from yesterday have been reviewed. She will troponins have been fairly insignificant. Patient can remove to telemetry when all agree. Current Visit: Yes (2) ESRD (end stage renal disease) on dialysis Status: Acute Assessment and plan: Patient is being followed by nephrology and is currently receiving hemodialysis. Current Visit: No (3) Tobacco dependence Status: Chronic Assessment and plan: Discussed smoking cessation. Current Visit: No (4) HTN (hypertension) Status: Chronic Assessment and plan: Currently well controlled. Current medical regimen. Current Visit: Yes Hospitalist: Subjective Interval history: Chart reviewed and patient examined. 52-year-old -[place] male who had episode of unresponsiveness which resolved after some minutes of CPR. He is currently receiving hemodialysis. He has been evaluated by Dr. Soto of cardiology. Patient is now awake alert and eating breakfast having no complaints of chest pain or shortness of breath. Exam - Constitutional Vitals: Period Temp Pulse Resp BP Sys/Rtan Pulse Ox Last 24 Hr 96.8 F-99.9 F 60-82 12-77 133-202/65-112 94-100 General appearance: no acute distress - Head Head exam: Present: normocephalic, atraumatic - Eye Eye exam: Present: EOMI Pupils: Present: TRINY - ENT ENT exam: Present: normal exam - Neck Neck exam: Present: normal inspection - Respiratory Respiratory exam: Present: clear to auscultation bilaterally - Cardiovascular Cardiovascular exam: Present: regular rate and rhythm. Absent: systolic murmur , tachycardia - GI/Abdominal GI/Abdominal exam: Present: normal bowel sounds, soft. Absent: tenderness, rebound - Extremities Exam Extremities exam: Absent: calf tenderness, edema - Back Exam Back exam: Present: normal inspection - Neurological Exam Neurological exam: Present: alert, oriented X3, CN II-XII intact. Absent: motor sensory deficit - Psychiatric Psychiatric exam: Present: normal affect, normal mood. Absent: agitated, anxious - Skin Skin exam: Present: warm, dry. Absent: erythema Results - Labs CBC & BMP: 05/13/17 04:36 05/13/17 00:09 Lab Results: I have reviewed the past 24 hour labs
[2017-05-13] MEDS: INSULIN LISPRO 100 UNIT/ML SUBCUT SCH ×4 (08:56→21:26)
[2017-05-13] MEDS: METOPROLOL TARTRATE 100 MG TABLET PO SCH ×2 (08:59→20:39)
[2017-05-13] MEDS: PANTOPRAZOLE 40 MG TABLET PO SCH (08:59)
--- NOTE | 2017-05-13 09:09 | Cardiology Progress Note ---
Assessment and Plan (1) Cardiac arrest, cause unspecified Status: Acute Assessment and plan: 52-year-old black male, presenting with an episode of unresponsiveness, which resolved with some minutes of CPR. No EKG. Normal troponin, no ischemic EKG changes. Recent onset, intermittent palpitations. Uncontrolled hypertension., End-stage renal disease on hemodialysis. -The events may have been syncope due to hypotension related to dialysis, although we cannot rule out true aborted SCD, likely due to bradyarrhythmic cause. -Echo showed preserved systolic function. -We will need to rule out ischemia, proceed with a stress test Monday a.m. -If negative for ischemia, we can proceed with a diagnostic EP study Monday p.m. -Based on the findings, he will either need a device or can be discharged with an event recorder -HTN. Blood pressure better controlled with increased nifedipine. -Borderline QTc prolongation resolved. Continue to monitor on telemetry. Avoid prolonging drugs. -He may be moved to telemetry floor Current Visit: Yes (2) HTN (hypertension) Status: Chronic Current Visit: Yes (3) ESRD (end stage renal disease) on dialysis Status: Acute Current Visit: No (4) Tobacco dependence Status: Chronic Current Visit: No Cardiology - PN: Subj Interval history: He is feeling fine. No recurrence of significant arrhythmia on telemetry. Exam (Progress Note) - Constitutional Vitals: Period Temp Pulse Resp BP Sys/Tran Pulse Ox Last 24 Hr 96.8 F-99.9 F 60-82 12-77 132-202/65-112 94-100 General appearance: normal weight, over weight - Head Head exam: Present: normal inspection. Absent: normocephalic - Eye Eye exam: Absent: conjunctival injection, scleral icterus Pupils: Absent: dilated - ENT ENT exam: Present: normal external ear exam - Neck Neck exam: Present: normal inspection - Respiratory Respiratory exam: Present: clear to auscultation bilaterally - Cardiovascular Cardiovascular exam: Present: regular rate and rhythm, systolic murmur - GI/Abdominal GI/Abdominal exam: Present: normal bowel sounds. Absent: distended - Extremities Exam Extremities exam: Present: normal inspection, normal capillary refill. Absent: edema - Back Exam Back exam: Present: normal inspection - Neurological Exam Neurological exam: Present: alert, oriented X3 - Psychiatric Psychiatric exam: Present: normal affect, normal mood - Skin Skin exam: Present: normal color, warm. Absent: cyanosis Result/EKG - Labs CBC & BMP: 05/13/17 04:36 05/13/17 00:09 Lab Results: I have reviewed the past 24 hour labs Labs: Laboratory Results - last 24 hr 05/12/17 05/12/17 05/12/17 08:07 08:07 08:07 WBC RBC Hgb Hct MCV MCH MCHC RDW Plt Count MPV Neut % (Auto) Lymph % (Auto) [place] % (Auto) Eos % (Auto) Baso % (Auto) Neut # (Auto) Lymph # (Auto) [place] # (Auto) Eos # (Auto) Baso # (Auto) Total Counted 100 Immature Gran % Nucleated RBC % Immature Gran # Segmented Neutrophils 83 Lymphocytes 11 L Monocytes 4 Eosinophils 2 Nucleated RBCs # Platelet Estimate Adequate Immature Plt Fraction Polychromasia Slight Hypochromasia 1+ Macrocytosis Slight Ovalocytes Slight Sodium 139 Potassium 4.1 Chloride 98 Carbon Dioxide 29 Anion Gap 16.1 H BUN 31 H Creatinine 9.43 H GFR Calculation 7 BUN/Creatinine Ratio 3.00 L Glucose 190 H POC Glucose Calculated Osmolality 288.5 Calcium 7.8 L Venous Ioniz Calcium Magnesium Total Bilirubin 0.90 AST 26 ALT 14 L Alkaline Phosphatase 131 H Troponin I 0.020 B-Natriuretic Peptide 1083 H Total Protein 7.2 Albumin 3.2 L Globulin 4.0 H Albumin/Globulin Ratio 0.8 L Hep Bs Antigen Blood Type Antibody Screen Crossmatch 05/12/17 05/12/17 05/12/17 08:07 16:24 17:22 WBC RBC Hgb Hct MCV MCH MCHC RDW Plt Count MPV Neut % (Auto) Lymph % (Auto) [place] % (Auto) Eos % (Auto) Baso % (Auto) Neut # (Auto) Lymph # (Auto) [place] # (Auto) Eos # (Auto) Baso # (Auto) Total Counted Immature Gran % Nucleated RBC % Immature Gran # Segmented Neutrophils Lymphocytes Monocytes Eosinophils Nucleated RBCs # Platelet Estimate Immature Plt Fraction Polychromasia Hypochromasia Macrocytosis Ovalocytes Sodium Potassium Chloride Carbon Dioxide Anion Gap BUN Creatinine GFR Calculation BUN/Creatinine Ratio Glucose POC Glucose 147 H Calculated Osmolality Calcium Venous Ioniz Calcium 0.84 L Magnesium Total Bilirubin AST ALT Alkaline Phosphatase Troponin I B-Natriuretic Peptide Total Protein Albumin Globulin Albumin/Globulin Ratio Hep Bs Antigen Blood Type B POSITIVE Antibody Screen Negative Crossmatch See Detail 05/12/17 05/12/17 05/12/17 17:22 17:22 17:22 WBC RBC Hgb 8.4 L Hct 27.4 L MCV MCH MCHC RDW Plt Count MPV Neut % (Auto) Lymph % (Auto) [place] % (Auto) Eos % (Auto) Baso % (Auto) Neut # (Auto) Lymph # (Auto) [place] # (Auto) Eos # (Auto) Baso # (Auto) Total Counted Immature Gran % Nucleated RBC % Immature Gran # Segmented Neutrophils Lymphocytes Monocytes Eosinophils Nucleated RBCs # Platelet Estimate Immature Plt Fraction Polychromasia Hypochromasia Macrocytosis Ovalocytes Sodium Potassium Chloride Carbon Dioxide Anion Gap BUN Creatinine GFR Calculation BUN/Creatinine Ratio Glucose POC Glucose Calculated Osmolality Calcium Venous Ioniz Calcium Magnesium Total Bilirubin AST ALT Alkaline Phosphatase Troponin I 0.031 B-Natriuretic Peptide Total Protein Albumin Globulin Albumin/Globulin Ratio Hep Bs Antigen Negative Blood Type Antibody Screen Crossmatch 05/12/17 05/12/17 05/12/17 17:23 20:26 20:26 WBC RBC Hgb 7.8 L Hct 25.4 L MCV MCH MCHC RDW Plt Count MPV Neut % (Auto) Lymph % (Auto) [place] % (Auto) Eos % (Auto) Baso % (Auto) Neut # (Auto) Lymph # (Auto) [place] # (Auto) Eos # (Auto) Baso # (Auto) Total Counted Immature Gran % Nucleated RBC % Immature Gran # Segmented Neutrophils Lymphocytes Monocytes Eosinophils Nucleated RBCs # Platelet Estimate Immature Plt Fraction Polychromasia Hypochromasia Macrocytosis Ovalocytes Sodium Potassium Chloride Carbon Dioxide Anion Gap BUN Creatinine GFR Calculation BUN/Creatinine Ratio Glucose POC Glucose 133 H Calculated Osmolality Calcium Venous Ioniz Calcium Magnesium 2.6 H Total Bilirubin AST ALT Alkaline Phosphatase Troponin I B-Natriuretic Peptide Total Protein Albumin Globulin Albumin/Globulin Ratio Hep Bs Antigen Blood Type Antibody Screen Crossmatch 05/12/17 05/13/17 05/13/17 Unknown 00:09 00:09 WBC 8.4 RBC 2.53 L Hgb 7.2 L Hct 23.6 L MCV 93.3 MCH 29 MCHC 30.5 L RDW 19.9 H Plt Count 159 MPV 11.3 Neut % (Auto) 73.3 Lymph % (Auto) 17.5 L [place] % (Auto) 5.1 Eos % (Auto) 2.3 Baso % (Auto) 1.0 H Neut # (Auto) 6.2 Lymph # (Auto) 1.5 [place] # (Auto) 0.4 Eos # (Auto) 0.2 Baso # (Auto) 0.1 Total Counted Immature Gran % 0.8 Nucleated RBC % 0.6 Immature Gran # 0.07 Segmented Neutrophils Lymphocytes Monocytes Eosinophils Nucleated RBCs # 0.05 Platelet Estimate Immature Plt Fraction 0.0 Polychromasia Hypochromasia Macrocytosis Ovalocytes Sodium Potassium Chloride Carbon Dioxide Anion Gap BUN Creatinine GFR Calculation BUN/Creatinine Ratio Glucose POC Glucose Calculated Osmolality Calcium Venous Ioniz Calcium Magnesium Total Bilirubin AST ALT Alkaline Phosphatase Troponin I 0.028 B-Natriuretic Peptide Total Protein Albumin Globulin Albumin/Globulin Ratio Hep Bs Antigen Blood Type B POSITIVE Antibody Screen Crossmatch 05/13/17 05/13/17 05/13/17 00:09 04:36 07:13 WBC RBC Hgb 7.5 L Hct 24.3 L MCV MCH MCHC RDW Plt Count MPV Neut % (Auto) Lymph % (Auto) [place] % (Auto) Eos % (Auto) Baso % (Auto) Neut # (Auto) Lymph # (Auto) [place] # (Auto) Eos # (Auto) Baso # (Auto) Total Counted Immature Gran % Nucleated RBC % Immature Gran # Segmented Neutrophils Lymphocytes Monocytes Eosinophils Nucleated RBCs # Platelet Estimate Immature Plt Fraction Polychromasia Hypochromasia Macrocytosis Ovalocytes Sodium 136 Potassium 4.4 Chloride 96 L Carbon Dioxide 29 Anion Gap 15.4 H BUN 39 H Creatinine 10.50 H GFR Calculation 6 BUN/Creatinine Ratio 3.00 L Glucose 121 H POC Glucose 108 H Calculated Osmolality 281.0 Calcium 7.7 L Venous Ioniz Calcium Magnesium 2.8 H Total Bilirubin 1.10 H AST 13 ALT 11 L Alkaline Phosphatase 112 Troponin I B-Natriuretic Peptide Total Protein 6.6 Albumin 2.9 L Globulin 3.7 H Albumin/Globulin Ratio 0.7 L Hep Bs Antigen Blood Type Antibody Screen Crossmatch - EKG EKG results: interpreted by me
--- NOTE | 2017-05-13 09:45 | EKG Report ---
Stationary ECG Study [facility] Test Date: 05/13/2017 9:42:48 AM Pat Name: PETTY ALVARENGA Department: Room: 126 Gender: M M[employer]: : 1965 Requested by: Daisy Sigala Order Number: [id number] Reading MD: CHIP MARSHALL Intervals [place] Rate: 68 P: 52 [place]: 159 QRS: 53 QRSD: 96 T: 94 QT: 463 QTc: 480 Interpretive Statements SINUS RHYTHM Electronically Signed On 05-13-17 22:48:01 CDT by CHIP MARSHALL [email or web address]
--- NOTE | 2017-05-13 11:22 | Dialysis Note ---
Dialysis Note - Dialysis Note Patient seen on dialysis. He is tolerating the procedure. Blood pressure noted to be 149/83. \Cardiovascular is regular rate. Lungs are clear anterior
[2017-05-13 12:37] LABS: Hematocrit 33.7 VOL% (42.0-52.0); Hemoglobin 10.8 GM/DL (14.0-18.0)
[2017-05-13] MEDS: ENOXAPARIN 40 MG/0.4 ML SYRINGE SUBCUT SCH (20:39)
[2017-05-14] MEDS: hydrALAZINE 20 MG/1 ML VIAL IV PRN (02:54)
--- NOTE | 2017-05-14 08:37 | Hospitalist Progress Note ---
Assessment and Plan (1) Syncope Status: Acute Assessment and plan: Further evaluation as per cardiology. Current Visit: Yes Hospitalist: Subjective Interval history: Patient is doing well with no complaints. He is not experiencing chest pain, shortness of breath, or palpitations. He has experienced no further episodes of loss of consciousness. Cardiac monitoring has not demonstrated any significant arrhythmias. He will be transferred to the telemetry unit today. He will undergo further cardiovascular testing tomorrow. Exam - Constitutional Vitals: Period Temp Pulse Resp BP Sys/Tran Pulse Ox Last 24 Hr 98.2 F-98.8 F 50-71 10-20 127-211/65-109 92-100 General appearance: no acute distress - Head Head exam: Present: normal inspection - Neck Neck exam: Present: normal inspection - Respiratory Respiratory exam: Present: clear to auscultation bilaterally - Cardiovascular Cardiovascular exam: Present: regular rate and rhythm - GI/Abdominal GI/Abdominal exam: Present: normal bowel sounds, soft, other (Nontender with no palpable masses or hepatosplenomegaly.) - Extremities Exam Extremities exam: Present: normal inspection - Neurological Exam Neurological exam: Present: alert, oriented X3 - Psychiatric Psychiatric exam: Present: normal affect - Skin Skin exam: Present: normal color, warm, intact Results - Labs CBC & BMP: 05/13/17 12:31 05/13/17 00:09
[2017-05-14] MEDS: MULTIVITAMIN (BEROCCA) TABLET PO SCH (08:52)
[2017-05-14] MEDS: METOPROLOL TARTRATE 100 MG TABLET PO SCH ×2 (08:52→20:36)
[2017-05-14] MEDS: PANTOPRAZOLE 40 MG TABLET PO SCH (08:53)
[2017-05-14] MEDS: INSULIN LISPRO 100 UNIT/ML SUBCUT SCH ×4 (08:53→20:39)
--- NOTE | 2017-05-14 09:16 | Cardiology Progress Note ---
Assessment and Plan (1) Cardiac arrest, cause unspecified Status: Acute Assessment and plan: 52-year-old black male, presenting with an episode of unresponsiveness, which resolved with some minutes of CPR. No EKG. Normal troponin, no ischemic EKG changes. Recent onset, intermittent palpitations. Uncontrolled hypertension., End-stage renal disease on hemodialysis. -The events may have been syncope due to hypotension related to dialysis, although we cannot rule out true aborted SCD, likely due to bradyarrhythmic cause. -Echo showed preserved systolic function. -We will need to rule out ischemia, proceed with a stress test Monday a.m. -If negative for ischemia, we can proceed with a diagnostic EP study Monday p.m. if no high-risk arrhythmia, we will implant a loop recorder and he can be discharged home in the evening -HTN. Blood pressure better controlled with increased nifedipine. -Borderline QTc prolongation resolved. Continue to monitor on telemetry. Avoid prolonging drugs. -He may be moved to telemetry floor Current Visit: Yes (2) HTN (hypertension) Status: Chronic Current Visit: Yes (3) ESRD (end stage renal disease) on dialysis Status: Inactive Current Visit: No (4) Tobacco dependence Status: Inactive Current Visit: No Cardiology - PN: Subj Interval history: He is feeling fine. No significant arrhythmia noted on telemetry. Exam (Progress Note) - Constitutional Vitals: Period Temp Pulse Resp BP Sys/Tran Pulse Ox Last 24 Hr 98.2 F-98.8 F 50-71 10-20 127-211/65-109 92-100 General appearance: normal weight, over weight - Head Head exam: Present: normal inspection. Absent: normocephalic - Eye Eye exam: Absent: conjunctival injection, scleral icterus Pupils: Absent: dilated - ENT ENT exam: Present: normal external ear exam - Neck Neck exam: Present: normal inspection - Respiratory Respiratory exam: Present: clear to auscultation bilaterally - Cardiovascular Cardiovascular exam: Present: regular rate and rhythm, systolic murmur - GI/Abdominal GI/Abdominal exam: Present: normal bowel sounds. Absent: distended - Extremities Exam Extremities exam: Present: normal inspection, normal capillary refill, other ( Hemodialysis fistula) - Back Exam Back exam: Present: normal inspection - Neurological Exam Neurological exam: Present: alert, oriented X3 - Psychiatric Psychiatric exam: Present: normal affect, normal mood - Skin Skin exam: Present: normal color, warm. Absent: cyanosis Result/EKG - Labs CBC & BMP: 05/13/17 12:31 05/13/17 00:09 Lab Results: I have reviewed the past 24 hour labs Labs: Laboratory Results - last 24 hr 05/13/17 05/13/17 05/13/17 11:22 12:31 16:14 Hgb 10.8 L D Hct 33.7 L POC Glucose 91 151 H 05/13/17 05/14/17 20:29 07:08 Hgb Hct POC Glucose 153 H 109 H - EKG EKG results: interpreted by me
[2017-05-14] MEDS ORDERED: VANCOMYCIN INJ 1,000 MG in SODIUM CHLORIDE 0.9% 250 ML IV ONE (09:18)
--- NOTE | 2017-05-14 15:33 | Nephrology Progress Note ---
Nephrology - PN: Subj Interval history: Patient is resting comfortably. Has transferred to a telemetry room at this time. No shortness of breath chest pain. Heart rates been in the 50s and 60s. Exam (PN)-Nephrology - Vital Signs Vital signs: Period Temp Pulse Resp BP Sys/Tran Pulse Ox Last 24 Hr 97 F-98.8 F 55-71 10-20 133-211/65-109 92-100 - General Appearance General appearance: well-developed, well-nourished EENT: ATNC Neck: supple Respiratory: clear Cardiology: regular rate, regular rhythm Gastrointestinal: normoactive bowel sounds, no tenderness, no guarding Neurologic: alert and oriented x3 Musculoskeletal: no clubbing Psychiatric: mood/affect appropriate - Lab 05/13/17 12:31 05/13/17 00:09 Most recent lab results Calcium 7.7 MG/DL (8.5-10.1) L 05/13/17 00:09 Magnesium 2.8 MG/DL (1.8-2.4) H 05/13/17 00:09 Assessment and Plan (1) End stage renal disease Status: Chronic Current Visit: Yes (2) Syncope Status: Acute Assessment and plan: This issue has resolved. Current Visit: Yes (3) HTN (hypertension) Status: Chronic Current Visit: Yes
[2017-05-14] MEDS ORDERED: MAGNESIUM HYDROXIDE SUSP 30 ML UDCUP PO PRN (17:15)
[2017-05-14] MEDS: ENOXAPARIN 40 MG/0.4 ML SYRINGE SUBCUT SCH (20:36)
[2017-05-15 05:14] LABS: Basophils # 0.1 10*3/uL (0.0-0.2); Basophils % 1.2 % (0.0-0.8); Eosinophils # 0.3 10*3/uL (0.0-0.87); Eosinophils % 4.3 % (0.00-10.9); Hematocrit 30.3 VOL% (42.0-52.0); Hemoglobin 9.6 GM/DL (14.0-18.0); Immature Granulocytes % 0.5 %; Immature Granulocytes Absolute 0.03 #; Lymphocytes # 0.9 10*3/uL (1.4-4.0); Lymphocytes % 13.4 % (21.2-54.2); Mean Corpuscular HGB Conc 31.7 GM/DL (32-36); Mean Corpuscular Hemoglobin 29 PG (27-34); Mean Corpuscular Volume 92.1 FL (87-102); Monocytes # 0.5 10*3/uL (0.11-0.8); Neutrophils # 4.7 10*3/uL (1.4-7.4); Neutrophils % 72.6 % (38.7-73.9); Platelet Count 156 T/CUMM (130-400); Red Blood Count 3.29 MC/CUMM (3.8-5.5); Red Cell Distribution Width 18.6 % (9.3-17.3); White Blood Count 6.5 T/CUMM (4-12)
[2017-05-15 05:39] LABS: INR 1.1; PT Patient Result 11.2 SECS; Partial Thromboplastin Time 39.8 SECS (0-40)
[2017-05-15 05:45] LABS: Calcium 7.8 MG/DL (8.5-10.1); Magnesium 2.8 MG/DL (1.8-2.4); Osmolality,Calculated 281.1 MOS/KG (273-304); Potassium 4.3 MMOL/L (3.5-5.1)
--- NOTE | 2017-05-15 08:11 | EKG Report ---
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
[2017-05-15] MEDS: INSULIN LISPRO 100 UNIT/ML SUBCUT SCH ×4 (09:11→21:30)
--- NOTE | 2017-05-15 09:58 | Cardiology Progress Note ---
Assessment and Plan - Time spent with patient Time spent with patient: Less than 30 minutes (1) Cardiac arrest, cause unspecified Status: Acute Assessment and plan: See plan of care listed below. Current Visit: Yes (2) HTN (hypertension) Status: Chronic Assessment and plan: See plan of care listed below. Current Visit: Yes (3) End stage renal disease Status: Chronic Assessment and plan: See plan of care listed below. Current Visit: Yes (4) Tobacco dependence Status: Chronic Assessment and plan: See plan of care listed below. Current Visit: Yes Cardiology - PN: Subj Interval history: [employer]inding [employer] Operator: new to Dr. Booth SUMMARY: 52-year-old black male, presenting with an episode of unresponsiveness , which resolved with some minutes of CPR. No EKG. Normal troponin, no ischemic EKG changes. Recent onset, intermittent palpitations. Uncontrolled hypertension., End-stage renal disease on hemodialysis. Echo showed preserved systolic function. He has had some borderline QTc prolongation which has now resolved. We will avoid prolonging drugs. MAY 15, 2017 UPDATE: Patient underwent stress testing this morning with assistance of Lexiscan due to fatigue, dyspnea, and dizziness/lightheadedness in early stage of Fernando Protocol. Vital signs are currently stable. He has had no significant arrhythmias noted on telemetry. Magnesium 2.8 today. Creatinine 10.3 with GFR 6. H&H is stable at 9.6 and 30.3. He voices no other complaints today. ASSESSMENT/PLAN: 1. CARDIAC ARREST - The events may have been syncope due to hypotension related to dialysis, although we cannot rule out true aborted SCD, likely due to bradyarrhythmic cause. To rule out ischemia, he was for stress testing this morning. If negative for ischemia, we can proceed with a diagnostic EP study this afternoon. If no high-risk arrhythmia, we will implant a loop recorder and he can be discharged home in the evening. 2. HYPERTENSION - Currently well controlled. Continue present therapy. Will continue to monitor and adjust accordingly. 3. ESRD ON DIALYSIS - Nephrology is following. Creatinine 10.3 today. 4. TOBACCO DEPENDENCE - Spent greater than 5 minutes discussing the harmful effects of tobacco abuse and urged complete cessation. Exam (Progress Note) - Constitutional Vitals: Period Temp Pulse Resp BP Sys/Tran Pulse Ox Last 24 Hr 97 F-98.5 F 55-71 13-20 133-153/69-83 94-100 Exam: General: Present: Appears Well, No Apparent Distress. Pleasant and cooperative. HEENT: Present: PERRL, Normocephaly, atraumatic. Mucus Membranes Moist. No jaundice noted. Conjunctiva moist and clear. Neck: Present: Supple Neck, Midline Trachea, No Masses, No Bruit, No tenderness Cardiac: Present: Regular Rate and Rhythm, systolic Murmur Lungs: Present: clear to auscultation bilaterally, no wheezes, rhonchi, rales. Neuro: Present: Awake, alert, and oriented x3. Moves all extremities well without hemiparesis or paralysis. Grossly Intact. Absent: Resting Tremor, Essential Tremor Abdomen: Present: Soft, Active Bowel Sounds, No Masses, Non-Tender, nondistended. No abdominal bruit or thrill noted. Skin: Present: Clear. Absent: Rash, No skin breakdown. Back: Normal inspection, no vertebral tenderness. Musculoskeletal: Present: No Fluid Collection, No Pain, Normal Range of Motion Extremities: Present: Normal Gait, No Clubbing, No Cyanosis, Upper Extr. Pulses 2+, Lower Extr. Pulses 2+, No edema. Capillary refill less than 3 seconds. Result/EKG - Labs CBC & BMP: 05/15/17 04:43 05/15/17 04:43 Lab Results: I have reviewed the past 24 hour labs Labs: Laboratory Results - last 24 hr 05/12/17 05/14/17 05/14/17 08:07 11:37 15:33 WBC RBC Hgb Hct MCV MCH MCHC RDW Plt Count MPV Neut % (Auto) Lymph % (Auto) [place] % (Auto) Eos % (Auto) Baso % (Auto) Neut # (Auto) Lymph # (Auto) [place] # (Auto) Eos # (Auto) Baso # (Auto) Immature Gran % Nucleated RBC % Immature Gran # Nucleated RBCs # Immature Plt Fraction INR PT Patient/Control Mix Circ Anticoag PTT Sodium Potassium Chloride Carbon Dioxide Anion Gap BUN Creatinine GFR Calculation BUN/Creatinine Ratio Glucose POC Glucose 129 H 190 H Calculated Osmolality Calcium Magnesium Blood Type B POSITIVE Antibody Screen Negative Crossmatch See Detail 05/14/17 05/15/17 05/15/17 20:35 04:43 04:43 WBC 6.5 RBC 3.29 L D Hgb 9.6 L Hct 30.3 L MCV 92.1 MCH 29 MCHC 31.7 L RDW 18.6 H Plt Count 156 MPV 11.0 Neut % (Auto) 72.6 Lymph % (Auto) 13.4 L [place] % (Auto) 8.0 Eos % (Auto) 4.3 Baso % (Auto) 1.2 H Neut # (Auto) 4.7 Lymph # (Auto) 0.9 L [place] # (Auto) 0.5 Eos # (Auto) 0.3 Baso # (Auto) 0.1 Immature Gran % 0.5 Nucleated RBC % 0.0 Immature Gran # 0.03 Nucleated RBCs # 0.00 Immature Plt Fraction 0.0 INR 1.1 PT Patient/Control Mix 11.2 Circ Anticoag PTT 39.8 Sodium Potassium Chloride Carbon Dioxide Anion Gap BUN Creatinine GFR Calculation BUN/Creatinine Ratio Glucose POC Glucose 176 H Calculated Osmolality Calcium Magnesium Blood Type Antibody Screen Crossmatch 05/15/17 05/15/17 04:43 07:46 WBC RBC Hgb Hct MCV MCH MCHC RDW Plt Count MPV Neut % (Auto) Lymph % (Auto) [place] % (Auto) Eos % (Auto) Baso % (Auto) Neut # (Auto) Lymph # (Auto) [place] # (Auto) Eos # (Auto) Baso # (Auto) Immature Gran % Nucleated RBC % Immature Gran # Nucleated RBCs # Immature Plt Fraction INR PT Patient/Control Mix Circ Anticoag PTT Sodium 135 L Potassium 4.3 Chloride 93 L Carbon Dioxide 32 Anion Gap 14.3 BUN 44 H Creatinine 10.30 H GFR Calculation 6 BUN/Creatinine Ratio 4.00 L Glucose 113 H POC Glucose 115 H Calculated Osmolality 281.1 Calcium 7.8 L Magnesium 2.8 H Blood Type Antibody Screen Crossmatch - EKG EKG results: interpreted by me, sinus rhythm
--- NOTE | 2017-05-15 09:58 | Event Note ---
Patient for nuclear stress testing this morning[facility], [facility], and dizziness after 2-2.5 minutes in Stage I of Fernando Protocol. He had no significant EKG changes, occasional PVC noted. He had no chest pain, heaviness, or tightness. He will now be transitioned to nuclear medicine for final scan. Dr. Kwong to read, interpret, and advise.
[2017-05-15] MEDS ORDERED: VANCOMYCIN INJ 1,000 MG in SODIUM CHLORIDE 0.9% 250 ML IV ONE (10:00)
[2017-05-15] MEDS ORDERED: REGADENOSON 0.4 MG/5 ML SYRINGE IV ONE (10:23)
--- NOTE | 2017-05-15 10:26 | Hospitalist Progress Note ---
Assessment and Plan - Time spent with patient Time spent with patient: Less than 30 minutes (1) Cardiac arrest, cause unspecified Status: Acute Assessment and plan: Patient has been followed by Dr. Soto. His notes and recommendations from yesterday have been reviewed. She will troponins have been fairly insignificant. Patient can remove to telemetry when all agree. 05/15/17: Patient underwent stress study today. If this is negative then he will have EP study this afternoon by Dr. Booth. Current Visit: Yes (2) HTN (hypertension) Status: Chronic Assessment and plan: Currently well controlled. Current medical regimen. Current Visit: Yes (3) End stage renal disease Status: Chronic Assessment and plan: Patient has been followed by nephrology for his end-stage renal disease. Current Visit: Yes Hospitalist: Subjective Interval history: Mr. De Leon is doing well today. He just returned from his stress study. He denies any chest pain, shortness breath, dizziness. Exam - Constitutional Vitals: Period Temp Pulse Resp BP Sys/Tran Pulse Ox Last 24 Hr 97 F-98.5 F 55-71 13-20 133-153/69-83 94-100 General appearance: no acute distress - Head Head exam: Present: normocephalic, atraumatic - Eye Eye exam: Present: EOMI Pupils: Present: TRINY - ENT ENT exam: Present: normal exam - Neck Neck exam: Present: normal inspection - Respiratory Respiratory exam: Present: clear to auscultation bilaterally. Absent: rales, rhonchi, wheezes - Cardiovascular Cardiovascular exam: Present: regular rate and rhythm. Absent: tachycardia - GI/Abdominal GI/Abdominal exam: Present: normal bowel sounds, soft. Absent: mass, tenderness , rebound - Extremities Exam Extremities exam: Absent: calf tenderness, edema - Neurological Exam Neurological exam: Present: alert, oriented X3, CN II-XII intact. Absent: motor sensory deficit - Psychiatric Psychiatric exam: Present: normal affect, normal mood. Absent: agitated, anxious - Skin Skin exam: Present: warm, dry. Absent: rash Results - Labs CBC & BMP: 05/15/17 04:43 05/15/17 04:43 Lab Results: I have reviewed the past 24 hour labs
--- NOTE | 2017-05-15 12:04 | Nephrology Progress Note ---
Nephrology - PN: Subj Interval history: He denies chest pain or shortness of breath today. He has undergone stress test this a.m. which was negative. Exam (PN)-Nephrology - Vital Signs Vital signs: Period Temp Pulse Resp BP Sys/Tran Pulse Ox Last 24 Hr 97 F-98.5 F 55-71 18-20 133-153/69-81 94-100 Exam: ENT: Normal Cardiovascular: Regular rate and rhythm. No murmur rub or gallop Lungs: Clear Extremities: No edema - Lab 05/15/17 04:43 05/15/17 04:43 Most recent lab results Calcium 7.8 MG/DL (8.5-10.1) L 05/15/17 04:43 Magnesium 2.8 MG/DL (1.8-2.4) H 05/15/17 04:43 Assessment and Plan (1) ESRD (end stage renal disease) on dialysis Status: Inactive Assessment and plan: 52-year-old man with: * Syncope. No documented dysrhythmia. Stress test negative. * ESRD. Dialysis today * Anemia. Posttransfusion * Hypertension. Controlled * Diabetes mellitus Current Visit: No (2) Anemia Status: Acute Current Visit: Yes (3) HTN (hypertension) Status: Chronic Current Visit: Yes (4) Syncope Status: Acute Current Visit: Yes
[2017-05-15] MEDS: PANTOPRAZOLE 40 MG TABLET PO SCH (14:43)
[2017-05-15] MEDS: CALCIUM ACETATE 667 MG CAPSULE PO SCH (14:43)
[2017-05-15] MEDS: METOPROLOL TARTRATE 100 MG TABLET PO SCH ×2 (14:57→21:26)
--- NOTE | 2017-05-15 15:47 | Nuclear Medicine Report ---
TREADMILL TEST WITH LEXISCAN AND CARDIOLITE DATE: 05/15/2017 HISTORY: A 52-year-old man with syncope, abnormal ST-T change on EKG, incomplete IVCD. Evaluated fo r evidence of ischemia. STRESS TEST WITH CARDIOLITE AND LEXISCAN: The patient was intravenously injected with 10 mCi of Tech netium Cardiolite. The rest study was done. The patient then walked slowly on the treadmill on stag e I Fernando protocol. He experienced fatigue and dyspneas and was transitioned to Lexiscan. He was gi andrea Lexiscan 0.4 mg IV and then Cardiolite 30 mCi IV. He then walked for an addition minute, then re sted and then had delayed scan. On the post "stress" images, there was no increased lung uptake, cardiac size was normal, and RV upta ke was normal. On the cine images, there was normal homogenous uptake of thallium in myocardial segments; there was good uptake of Cardiolite throughout in all myocardial segments. There was inferior thinning, in the KHAN view, inferoseptal thinning seen in the MALAGASY view and some inferoposterior thinning in extreme LA O view. Otherwise there was good uptake. On the delayed images, there were similar findings. The Gated SPECT images revealed normal ejection fraction, ejection fraction was greater than 55%. IMPRESSION: 1. NORMAL STRESS TEST WITH CARDIOLITE AND LEXISCAN. 2. NO EVIDENCE OF ISCHEMIA. 3. NORMAL GLOBAL SYSTOLIC FUNCTION WITH OVERALL EJECTION FRACTION AT LEAST 55% 4. NORMAL REGIONAL WALL MOTION. 5. NO PRIOR STUDIES ARE AVAILABLE FOR COMPARISON. PLAN/RECOMMENDATION: For the study, the patient had a syncopal episode, but appears not to be ischem ic. He has good ejection fraction. Dr. Cardenas plans to do an EP study later today to evaluate for ot her cause of it. Procedure performed and interpreted at [facility] Department of Radiology. CC: [facility] Dr. Novoa's Dr. Gerald Lizarraga.
--- NOTE | 2017-05-15 17:02 | Electrophysiology Progress Not ---
Assessment and Plan (1) Cardiac arrest, cause unspecified Status: Acute Assessment and plan: 52-year-old black male, presenting with an episode of unresponsiveness, which resolved with some minutes of CPR. No EKG. Normal troponin, no ischemic EKG changes. Recent onset, intermittent palpitations. Uncontrolled hypertension., End-stage renal disease on hemodialysis. -The events may have been syncope due to hypotension related to dialysis, although we cannot rule out true aborted SCD, likely due to bradyarrhythmic cause. -Echo showed preserved systolic function. No evidence of ischemia on stress test. -We will proceed with diagnostic EP study tomorrow a.m. N.p.o. after midnight. If no significant tachycardia or bradycardia, we will implant an ILR. Otherwise, he will need a pacemaker or defibrillator. -If no high-risk arrhythmia identified, from an EP perspective, he may be discharged home tomorrow after the procedure Current Visit: Yes (2) HTN (hypertension) Status: Chronic Current Visit: Yes (3) ESRD (end stage renal disease) on dialysis Status: Inactive Current Visit: No (4) Tobacco dependence Status: Inactive Current Visit: No Electrophysiology Subjective Interval history: He is feeling fine. No arrhythmia noted on telemetry. Exam - Constitutional Vitals: Period Temp Pulse Resp BP Sys/Tran Pulse Ox Last 24 Hr 97.9 F-98.5 F 57-71 18-20 139-153/69-81 94-97 General appearance: no acute distress, over weight - Head Head exam: Present: normal inspection, normocephalic - Eye Eye exam: Absent: conjunctival injection Pupils: Absent: dilated - ENT ENT exam: Present: normal external ear exam - Neck Neck exam: Present: normal inspection - Respiratory Respiratory exam: Present: clear to auscultation bilaterally - Cardiovascular Cardiovascular exam: Present: regular rate and rhythm, systolic murmur - GI/Abdominal GI/Abdominal exam: Present: normal bowel sounds. Absent: distended - Extremities Exam Extremities exam: Present: normal inspection, normal capillary refill. Absent: edema - Back Exam Back exam: Present: normal inspection - Neurological Exam Neurological exam: Present: alert, oriented X3 - Psychiatric Psychiatric exam: Present: normal affect, normal mood - Skin Skin exam: Present: normal color, warm. Absent: cyanosis Results - Labs CBC & BMP: 05/15/17 04:43 05/15/17 04:43 Lab Results: I have reviewed the past 24 hour labs
[2017-05-15] MEDS: ENOXAPARIN 40 MG/0.4 ML SYRINGE SUBCUT SCH (21:26)
[2017-05-16] MEDS: hydrALAZINE 20 MG/1 ML VIAL IV PRN (00:31)
--- NOTE | 2017-05-16 07:56 | History and Physical Update ---
Sedation H&P Update - History and Physical H&P was reviewed, the patient examined and there: are no changes in the patients condition since last H&P was completed. - Dictation Physical: refer to scanned H&P - Physical Exam Mental Status: alert and oriented Heart: regular rate and rhythm Lung: clear to auscultation Abdomen: within normal limits Vitals: within normal limits History and Physical Changes: run of atrial bigeminy overnight - Sedation Plan for Sedation: moderate Patient Consent: Procedure disscussed with patient and patinet has consented., Risks and benefits were discussed with patient,including infection,, bleeding, injury to surrounding structures, seizure, temporary nerve, Patient understands and accepts potential risks/benefits and agrees to ASA Class: III Airway Assessment: Class III: Soft palate, base of uvula visible
[2017-05-16] MEDS: INSULIN LISPRO 100 UNIT/ML SUBCUT SCH (08:19)
[2017-05-16] MEDS ORDERED: HEPARIN/NACL 0.9% 2 UNITS/ML 500 ML IV ONE (08:23)
[2017-05-16] MEDS ORDERED: LIDOCAINE 1% 20 ML VIAL ONE (08:26)
[2017-05-16] MEDS ORDERED: MIDAZOLAM 2 MG/2 ML VIAL ONE (08:41)
[2017-05-16] MEDS ORDERED: fentaNYL 100 MCG/2 ML VIAL ONE (08:41)
[2017-05-16] MEDS ORDERED: ceFAZolin 1,000 MG VIAL ONE (09:01)
[2017-05-16] MEDS ORDERED: LIDOCAINE 1%/EPI INJ 20 ML VIAL ONE (09:59)
[2017-05-16] MEDS ORDERED: TISSUE ADHESIVE 1 EACH APPLICATOR TOP ONE (10:00)
--- NOTE | 2017-05-16 10:05 | Electrophysiology Report ---
Date of Procedure:: 05/16/17 Pre-op diagnosis: syncope Post-op diagnosis: same Procedure: PROCEDURAL SUMMARY Diagnostic EP study. Normal SA and AVN function, no inducible sustained arrhythmia. Loop recorder implant. Successful procedures, no complications. DIAGNOSES Syncope ESRD on HD PLAN Bed rest for 4 hours. From a cardiac perspective, he may be discharged thereafter. Keep a sandbag over the loop recorder site, for 4 hours. Follow up with dr. Booth in 1 week. Keflex 500 mg bid for 3 days. Post EP study/loop recorder implant activity limitations were discussed. No heavy lifting for 3 days. Keep the implant site dry and the dressing in place, until seen for FU. PROCEDURE REPORT A timeout was performed before the procedure. Sedation Conscious sedation was initiated with Versed + Fentanyl and maintained during the procedure. Access The Seldinger technique was performed utilizing a 21 gauge micropuncture needle and 0.[address] the following sheaths. RFV: 8 Fr - Decapolar deflectable CS catheter - CS recording and pacing RFV: 5 Fr - Diagnostic Quad catheter. This could not be advanced into the proper position, due to a loop in the catheter, while advancing in IVC, which could not be corrected. This was removed together with the sheath at the end of the procedure, without complications. LFV: 5 Fr - Diagnostic Quad catheter - His and RV recording and pacing. Electrophysiologic Study Baseline ECG: sinus rhythm, RR 999 ms. NH 172, QRS 90, QT 444 ms. There was no preexcitation. The catheters were introduced under fluoroscopic guidance. AH 97 ms, HV 43 ms. VA Wenckebach 490 ms. Retrograde conduction decremental, concentric. Retrograde AV rei ERP 600/560. No jump or echo beats. AV Wenckebach 410 ms. Anterograde conduction decremental, concentric. AV rei ERP 600/330 ms. No jump or echo beats. No atrial arrhythmia inducible up to 1 PES. SNRT 1694, SCL 1177. VERP 600/270, 400/240, 330/220. Programmed ventricular stimulation was performed from the RVA, at 600, 400 and 330 ms, up to 3 PES. Short runs of polymorphic VT were noted with triple PES, no sustained arrhythmia was inducible. Programmed ventricular stimulation was performed from the RVOT, at 600, 400 and 330 ms, up to 2 PES. Occasional PVCs were noted. The findings were concluded as normal sinoatrial and AV rei function, no inducible sustained tachyarrhythmia, or evidence of infrahisian block. The catheters were removed and the sheaths were pulled. Manual compression was applied until hemostasis was achieved. There were no complications. LOOP recorder implant Antibiotic prophylaxis Iv. Ancef was used prior to the procedure. PROCEDURE The left parasternal area was meticulously prepared with ChloroPrep surgical scrub. Sterile draping was applied and Ioban was used to cover the operation site. After infiltration with 1% lidocaine+epinephrine, an incision was made in the left parasternal area with the blade of the ILR kit. The ILR was injected into the subcutaneous tissue using the implant tool. The sensed signal was 1.62 mV. Good hemostasis was noted. The wound was closed using Exofin. A sterile dressing was then applied. Implanted device: Medtronic LinQ Reveal SN: [id number]. PROCEDURE(S) 1. Comprehensive diagnostic EP study with attempted arrhythmia induction. 2. Loop recorder implant Anesthesia: moderate conscious sedation Surgeon / Physician: Jacek Booth Graduate Studies Dean: other (Mahendra) Estimated blood loss: minimal Specimens: none sent Condition: stable Disposition: floor
[2017-05-16] MEDS ORDERED: cephALEXin 250 MG CAPSULE PO SCH (11:00)
[2017-05-16] MEDS: PANTOPRAZOLE 40 MG TABLET PO SCH (11:29)
[2017-05-16] MEDS: METOPROLOL TARTRATE 100 MG TABLET PO SCH (11:29)
[2017-05-16] MEDS: MULTIVITAMIN (BEROCCA) TABLET PO SCH (11:29)
--- NOTE | 2017-05-16 15:45 | Discharge Summary ---
Hospital Course - Hospital Course Hospital Course: Mr. De Leon is a 52 year old black male, end-stage renal on hemodialysis, due to hypertensive renal disease. He is not aware of prior cardiac issues. Today, he was undergoing dialysis and suddenly felt unwell and became unresponsive. CPR was administered for 3 minutes and then he became responsive. He was not on a monitor and no shocks were delivered. Although there was a mention of asystole, no EKG documentation of arrhythmia. On admission, initial EKG showed borderline prolonged QTC of around 500 ms, now it is normal, with slightly peaked T waves. No major electrolyte abnormalities. He did not have chest pain prior to the event or recently, but the chest wall felt sore after CPR. He noted some palpitations, sometimes related to dialysis recently. He is still making some urine, denies shortness of breath with swelling. Troponin normal, BNP elevated, he is anemic. Reviewing his medical records, he is currently not on medications, that would significantly affect QTc. DVT study was normal, carotid ultrasound showed no significant stenosis. His blood pressure is usually poorly controlled. Assessment and Plan (1) Cardiac arrest, cause unspecified Status: Acute Assessment and plan: 52-year-old black male, presenting with an episode of unresponsiveness, which resolved with some minutes of CPR. No EKG. Normal troponin, no ischemic EKG changes. Recent onset, intermittent palpitations. Uncontrolled hypertension., End-stage renal disease on hemodialysis. -The events may have been syncope due to hypotension related to dialysis, although we cannot rule out true aborted SCD, likely due to bradyarrhythmic cause. -Echo. -He will need ischemic evaluation. Recheck troponin, rule out ACS. We can pursue a stress test. -If no reversible etiology, he will need an EP study plus minus long-term monitoring. Depending on the workup, he could be a candidate for primary prevention ICD, SICD given his ESRD -Poorly controlled hypertension. Increase nifedipine ER to 60 mg twice daily. -Borderline QTc prolongation resolved. Continue to monitor on telemetry. Avoid prolonging drugs. Current Visit: Yes (2) HTN (hypertension) Status: Acute Current Visit: Yes (3) ESRD (end stage renal disease) on dialysis Status: Acute Current Visit: No (4) Tobacco dependence Status: Acute Current Visit: No The patient did well during the course of the hospitalization. He suffered no further arrhythmias or syncopal episodes. He underwent dialysis without any difficulties. He was seen in consultation by cardiology as well as nephrology. He underwent a full workup by Dr. Booth. Diagnostic EP study shows normal SA and AVN function, no inducible sustained arrhythmia. Loop recorder implant. Successful procedures, no complications. DIAGNOSES Syncope ESRD on HD PLAN Bed rest for 4 hours. From a cardiac perspective, he may be discharged thereafter. Keep a sandbag over the loop recorder site, for 4 hours. Follow up with Dr. Booth in 1 week. Keflex 500 mg bid for 3 days. Post EP study/loop recorder implant activity limitations were discussed. No heavy lifting for 3 days. Keep the implant site dry and the dressing in place, until seen for FU. - Time spent with patient Time with patient DS: Greater than 30 minutes (Total discharge time for this patient, including [id number] time, clinical documentation, medication reconciliation, and discharge planning was 45 minutes.) Diagnosis - Discharge Diagnosis (1) Syncope Status: Acute (2) Cardiac arrest, cause unspecified Status: Resolved (3) HTN (hypertension) Status: Chronic (4) End stage renal disease Status: Chronic (5) Tobacco dependence Status: Chronic Specialty Discharge - Follow Up or Referrals Follow up with: Jacek Booth MD [Physician] - 1 Week (EKG ) Discharge Plan - Discharge Data Disposition: Disch To Home/Self Care Condition at Discharge: Stable Discharge Diet: advance to your usual diet Activity: resume usual activities as tolerated Hygiene: no restrictions Weight Bearing at Discharge: full weight bearing Driving: no restrictions Contact your physician if you experience:: fever over 101, Nausea/Vomiting, Shortness of breath - Discharge Medications New cephALEXin [Keflex] 250 mg PO Q24H #3 capsule HYDROcodone/ACETAMIN 7.5-325 [[place] 7.5-325] 2 tablet PO Q6H PRN #10 tablet PRN Reason: Pain Moderate (4-7) Continue cloNIDine TAB [Catapres Tab] 0.2 mg PO BID NIFEdipine XL TAB [Procardia Xl] 60 mg PO QAM Pantoprazole Tab [Protonix Tab] 40 mg PO QAM Metoprolol Tartrate Tab [Lopressor Tab] 100 mg PO BID Calcium Acetate [Phoslo] 667 mg PO MOWEFR Pro Renal Vitamin 1 tablet PO QOTHER DAY - Follow Up or Referral Follow Up: Jacek Booth MD [Physician] - 1 Week (EKG ) - Forms/Instructions Exam - Constitutional Vitals: Period Temp Pulse Resp BP Sys/Tran Pulse Ox Last 24 Hr 97.2 F-98.8 F 54-96 18-20 135-202/70-97 90-100 Discharge Results Procedures and tests throughout hospitalization: Pending Orders 05/12/17 09:00 Blood Culture Stat 05/16/17 08:17 CL heart Routine Labs on day of discharge: Labs from last 24 hours 05/16/17 05/15/17 05/15/17 07:58 19:36 16:19 POC Glucose 88 127 H 149 H Preliminary micro results at discharge 05/12/17 09:00 Blood Culture - Preliminary Blood No growth at 3 days 05/12/17 08:13 Blood Culture - Preliminary Blood No growth at 3 days DS: Provider Date of admission: 05/12/17 11:03 Primary care physician: . No PCP Attending physician on admission: Jones Jasso Consults: 05/12/17 11:45 Consult to Physician [CONS] Routine Comment: Consulting Provider: Storm Ryan When should Consulting Provider be notified: Now 05/12/17 11:46 Consult to Physician [CONS] Routine Comment: Consulting Provider: Jacek Booth When should Consulting Provider be notified: Now Discharging clinician: José Morgan MD Expected date of discharge: 05/16/17
[2017-05-16 16:23] VITALS: BP 156/74
--- NOTE | 2017-05-16 18:33 | Nephrology Progress Note ---
Nephrology - PN: Subj Interval history: He underwent EP study and loop recorder implant this morning. He denies any new symptoms. Exam (PN)-Nephrology - Vital Signs Vital signs: Period Temp Pulse Resp BP Sys/Tran Pulse Ox Last 24 Hr 97.2 F-98.8 F 54-96 18-20 135-202/70-97 90-100 Exam: ENT: Normal Cardiovascular: Regular rate and rhythm. No murmur rub or gallop Lungs: Clear Extremities: No edema - Lab 05/15/17 04:43 05/15/17 04:43 Most recent lab results Calcium 7.8 MG/DL (8.5-10.1) L 05/15/17 04:43 Magnesium 2.8 MG/DL (1.8-2.4) H 05/15/17 04:43 Assessment and Plan (1) End stage renal disease Status: Chronic Assessment and plan: He tolerated dialysis yesterday without problems. EP study and loop recorder today. Discharge plans noted (2) Anemia Status: Acute (3) HTN (hypertension) Status: Chronic (4) Syncope Status: Acute Specialty Discharge - Follow Up or Referrals Follow up with: Jacek Booth MD [Physician] - 05/23/17 2:50 pm (EKG )
[2017-05-16] MEDS ORDERED: ENOXAPARIN 30 MG/0.3 ML SYRINGE SUBCUT SCH (21:00)
== END 2017-05-16 16:26 | disposition home or self-care (01) | DRG 260 ==
LOC: EDUNIT# → EDBD → N.ED 06:59 → N.EDINP 11:03 → SUATTDRO 11:03 → N.CC 11:39 → N.TELES 05-14 13:32
PROVIDERS: ATTEND Family Medicine

== ENCOUNTER 2019-09-28 08:36 | Inpatient (IN) ==
[2019-09-28] MEDS ORDERED: ACETAMINOPHEN 325 MG TABLET PO ONE (09:13)
[2019-09-28 10:57] LABS: Basophils # 0.1 10*3/uL (0.0-0.2); Basophils % 0.8 % (0.0-0.8); Eosinophils % 0.2 % (0.00-10.9); Hematocrit 35.3 VOL% (42.0-52.0); Hemoglobin 11.3 GM/DL (14.0-18.0); Immature Granulocytes % 0.5 %; Immature Granulocytes Absolute 0.03 #; Lymphocytes # 0.3 10*3/uL (1.4-4.0); Lymphocytes % 3.8 % (21.2-54.2); Mean Corpuscular Volume 87.8 FL (87-102); Mean Platelet Volume 9.9 FL (9.6-12.0); Monocytes % 10.9 % (1.7-12.7); Neutrophils % 83.8 % (38.7-73.9); Platelet Count 136 T/CUMM (130-400); Red Blood Count 4.02 MC/CUMM (3.8-5.5); Red Cell Distribution Width 17.2 % (9.3-17.3); White Blood Count 6.5 T/CUMM (4-12)
[2019-09-28 11:06] LABS: INR 1.2
[2019-09-28 11:12] LABS: Alanine Aminotransferase 23 U/L (16-61); Albumin 2.6 G/DL (3.4-5.0); Alkaline Phosphatase 339 U/L (45-117); Aspartate Amino Transferase 45 U/L (0-37); Blood Urea Nitrogen 44 MG/DL (7-18); Estimated Glom Filtration Rate 7 ML/MIN; Glucose 93 MG/DL (74-106); Osmolality,Calculated 276.4 MOS/KG (273-304); Total Protein 8.1 G/DL (6.4-8.3); Troponin I 0.029 NG/ML (0.00-0.045)
[2019-09-28 11:29] LABS: Band Neutrophils 2 % (0-10); Eosinophils 1 % (0-10); Lymphocytes 1 % (20-55); Segmented Neutrophils 88 % (50-85); Total Cells Counted 100
[2019-09-28 11:30] LABS: Hypochromasia 1+; Ovalocytes Slight; Platelet Estimate Normal
[2019-09-28] MEDS ORDERED: VANCOMYCIN INJ 1,000 MG in SODIUM CHLORIDE 0.9% 250 ML IV STA (11:52)
[2019-09-28] MEDS ORDERED: ACETAMINOPHEN 325 MG TABLET PO PRN (13:57)
[2019-09-28] MEDS ORDERED: ONDANSETRON 4 MG/2 ML VIAL IV PRN (13:57)
[2019-09-28] MEDS ORDERED: VANCOMYCIN INJ 500 MG in SODIUM CHLORIDE 0.9% 100 ML IV PRN (14:30)
[2019-09-28] MEDS ORDERED: VANCOMYCIN INJ 500 MG in SODIUM CHLORIDE 0.9% 100 ML IV ONE (15:30)
[2019-09-28] MEDS: SEVELAMER CARBONATE POWDER 2.4 GM PACK PO SCH (16:54)
[2019-09-28] MEDS: NICOTINE 14 MG/24 HR PATCH TRANSDERM SCH (16:54)
[2019-09-28] MEDS: APIXABAN 2.5 MG TABLET PO SCH (20:18)
[2019-09-28] MEDS: METOPROLOL TARTRATE 100 MG TABLET PO SCH (20:18)
[2019-09-28] MEDS ORDERED: ENOXAPARIN 30 MG/0.3 ML SYRINGE SUBCUT SCH (21:00)
[2019-09-29] MEDS: MORPHINE 4 MG/1 ML VIAL IV PRN ×3 (04:35→21:10)
[2019-09-29 06:41] LABS: Basophils % 0.8 % (0.0-0.8); Eosinophils # 0.1 10*3/uL (0.0-0.87); Eosinophils % 2.6 % (0.00-10.9); Hematocrit 32.9 VOL% (42.0-52.0); Hemoglobin 10.5 GM/DL (14.0-18.0); Immature Granulocytes % 0.4 %; Immature Granulocytes Absolute 0.02 #; Lymphocytes # 0.3 10*3/uL (1.4-4.0); Lymphocytes % 5.2 % (21.2-54.2); Mean Corpuscular HGB Conc 31.9 GM/DL (32-36); Mean Corpuscular Volume 88.2 FL (87-102); Monocytes % 12.7 % (1.7-12.7); Neutrophils % 78.3 % (38.7-73.9); Platelet Count 133 T/CUMM (130-400); Red Blood Count 3.73 MC/CUMM (3.8-5.5); Red Cell Distribution Width 16.9 % (9.3-17.3)
[2019-09-29 07:01] LABS: Calcium 7.6 MG/DL (8.5-10.1); Osmolality,Calculated 279.5 MOS/KG (273-304)
[2019-09-29] MEDS: SEVELAMER CARBONATE POWDER 2.4 GM PACK PO SCH ×3 (09:45→17:10)
[2019-09-29] MEDS: METOPROLOL TARTRATE 100 MG TABLET PO SCH ×2 (09:46→21:13)
[2019-09-29] MEDS: NICOTINE 14 MG/24 HR PATCH TRANSDERM SCH (09:46)
[2019-09-29] MEDS: APIXABAN 2.5 MG TABLET PO SCH ×2 (09:46→21:13)
[2019-09-29] MEDS: PANTOPRAZOLE 40 MG TABLET PO SCH (09:46)
[2019-09-30] MEDS: MORPHINE 4 MG/1 ML VIAL IV PRN ×2 (02:35→14:55)
[2019-09-30 04:54] LABS: Basophils # 0.1 10*3/uL (0.0-0.2); Basophils % 1.7 % (0.0-0.8); Eosinophils # 0.3 10*3/uL (0.0-0.87); Eosinophils % 4.8 % (0.00-10.9); Hematocrit 31.6 VOL% (42.0-52.0); Hemoglobin 10.2 GM/DL (14.0-18.0); Immature Granulocytes % 0.6 %; Immature Granulocytes Absolute 0.03 #; Lymphocytes # 0.4 10*3/uL (1.4-4.0); Lymphocytes % 8.2 % (21.2-54.2); Mean Corpuscular HGB Conc 32.3 GM/DL (32-36); Mean Corpuscular Volume 87.3 FL (87-102); Mean Platelet Volume 11.2 FL (9.6-12.0); Monocytes % 12.3 % (1.7-12.7); Neutrophils % 72.4 % (38.7-73.9); Platelet Count 164 T/CUMM (130-400); Red Blood Count 3.62 MC/CUMM (3.8-5.5); Red Cell Distribution Width 16.5 % (9.3-17.3); White Blood Count 5.4 T/CUMM (4-12)
[2019-09-30 05:28] LABS: Calcium 7.7 MG/DL (8.5-10.1); Osmolality,Calculated 280.7 MOS/KG (273-304)
[2019-09-30] MEDS: SEVELAMER CARBONATE POWDER 2.4 GM PACK PO SCH ×3 (09:22→18:08)
[2019-09-30] MEDS: APIXABAN 2.5 MG TABLET PO SCH ×2 (09:22→23:57)
[2019-09-30] MEDS: NICOTINE 14 MG/24 HR PATCH TRANSDERM SCH (09:22)
[2019-09-30] MEDS: PANTOPRAZOLE 40 MG TABLET PO SCH (09:22)
[2019-09-30] MEDS: METOPROLOL TARTRATE 100 MG TABLET PO SCH ×2 (09:22→23:58)
[2019-09-30] MEDS ORDERED: VANCOMYCIN INJ 500 MG in SODIUM CHLORIDE 0.9% 100 ML IV ONE (17:00)
[2019-10-01] MEDS: MORPHINE 4 MG/1 ML VIAL IV PRN ×2 (02:48→20:44)
[2019-10-01] MEDS: NICOTINE 14 MG/24 HR PATCH TRANSDERM SCH (09:41)
[2019-10-01] MEDS: SEVELAMER CARBONATE POWDER 2.4 GM PACK PO SCH ×3 (09:41→16:48)
[2019-10-01] MEDS: APIXABAN 2.5 MG TABLET PO SCH ×2 (09:42→20:50)
[2019-10-01] MEDS: PANTOPRAZOLE 40 MG TABLET PO SCH (09:42)
[2019-10-01] MEDS: METOPROLOL TARTRATE 100 MG TABLET PO SCH ×2 (09:42→20:50)
[2019-10-02 06:53] LABS: Basophils # 0.1 10*3/uL (0.0-0.2); Basophils % 2.2 % (0.0-0.8); Eosinophils # 0.2 10*3/uL (0.0-0.87); Eosinophils % 3.8 % (0.00-10.9); Hematocrit 32.6 VOL% (42.0-52.0); Hemoglobin 10.2 GM/DL (14.0-18.0); Immature Granulocytes % 1.1 %; Immature Granulocytes Absolute 0.05 #; Lymphocytes # 0.4 10*3/uL (1.4-4.0); Lymphocytes % 8.8 % (21.2-54.2); Mean Corpuscular HGB Conc 31.3 GM/DL (32-36); Mean Corpuscular Volume 89.1 FL (87-102); Mean Platelet Volume 9.7 FL (9.6-12.0); Monocytes % 12.2 % (1.7-12.7); Neutrophils % 71.9 % (38.7-73.9); Platelet Count 169 T/CUMM (130-400); Red Blood Count 3.66 MC/CUMM (3.8-5.5); Red Cell Distribution Width 16.7 % (9.3-17.3); White Blood Count 4.5 T/CUMM (4-12)
[2019-10-02] MEDS: PANTOPRAZOLE 40 MG TABLET PO SCH (08:38)
[2019-10-02] MEDS: SEVELAMER CARBONATE POWDER 2.4 GM PACK PO SCH ×3 (08:38→16:37)
[2019-10-02] MEDS: APIXABAN 2.5 MG TABLET PO SCH ×2 (08:38→21:01)
[2019-10-02] MEDS: NICOTINE 14 MG/24 HR PATCH TRANSDERM SCH (08:43)
[2019-10-02] MEDS: MORPHINE 4 MG/1 ML VIAL IV PRN (14:46)
[2019-10-02] MEDS: METOPROLOL TARTRATE 100 MG TABLET PO SCH ×3 (15:43→21:01)
[2019-10-02] MEDS ORDERED: VANCOMYCIN INJ 500 MG in SODIUM CHLORIDE 0.9% 100 ML IV ONE (18:00)
[2019-10-02] MEDS: oxyCODONE/ACETAMINOPHEN 5-325 MG TABLET PO PRN ×2 (18:54→23:25)
[2019-10-03 05:00] LABS: Basophils # 0.1 10*3/uL (0.0-0.2); Basophils % 2.2 % (0.0-0.8); Eosinophils # 0.2 10*3/uL (0.0-0.87); Hemoglobin 10.1 GM/DL (14.0-18.0); Immature Granulocytes % 0.9 %; Immature Granulocytes Absolute 0.04 #; Lymphocytes # 0.4 10*3/uL (1.4-4.0); Lymphocytes % 8.1 % (21.2-54.2); Mean Corpuscular HGB Conc 31.6 GM/DL (32-36); Mean Corpuscular Volume 88.9 FL (87-102); Mean Platelet Volume 9.8 FL (9.6-12.0); Monocytes % 13.6 % (1.7-12.7); Neutrophils % 70.2 % (38.7-73.9); Platelet Count 166 T/CUMM (130-400); Red Cell Distribution Width 16.8 % (9.3-17.3); White Blood Count 4.6 T/CUMM (4-12)
[2019-10-03] MEDS: APIXABAN 2.5 MG TABLET PO SCH (08:58)
[2019-10-03] MEDS: SEVELAMER CARBONATE POWDER 2.4 GM PACK PO SCH ×2 (08:58→12:56)
[2019-10-03] MEDS: PANTOPRAZOLE 40 MG TABLET PO SCH (08:58)
[2019-10-03] MEDS: METOPROLOL TARTRATE 100 MG TABLET PO SCH (08:59)
[2019-10-03] MEDS: NICOTINE 14 MG/24 HR PATCH TRANSDERM SCH (09:02)
[2019-10-03] MEDS: oxyCODONE/ACETAMINOPHEN 5-325 MG TABLET PO PRN (12:59)
[2019-10-03 15:33] VITALS: BP 125/77
== END 2019-10-03 16:05 | disposition home or self-care (01) | DRG 299 ==
LOC: N.ED 08:36 → N.EDINP 13:57 → SUATTDRO 13:57 → N.5E 14:21
PROVIDERS: ADMIT Internal Medicine Cardiovascular Disease; ATTEND Internal Medicine

== ENCOUNTER 2019-11-16 08:29 | Inpatient (IN) ==
[2019-11-16 09:58] LABS: Basophils # 0.1 10*3/uL (0.0-0.2); Basophils % 1.2 % (0.0-0.8); Eosinophils # 0.2 10*3/uL (0.0-0.87); Eosinophils % 4.5 % (0.00-10.9); Hematocrit 32.1 VOL% (42.0-52.0); Hemoglobin 9.9 GM/DL (14.0-18.0); Immature Granulocytes % 0.6 %; Immature Granulocytes Absolute 0.03 #; Lymphocytes # 0.2 10*3/uL (1.4-4.0); Lymphocytes % 4.5 % (21.2-54.2); Mean Corpuscular HGB Conc 30.8 GM/DL (32-36); Mean Corpuscular Volume 92.2 FL (87-102); Mean Platelet Volume 11.1 FL (9.6-12.0); Monocytes % 8.7 % (1.7-12.7); Neutrophils % 80.5 % (38.7-73.9); Platelet Count 138 T/CUMM (130-400); Red Blood Count 3.48 MC/CUMM (3.8-5.5); Red Cell Distribution Width 18.3 % (9.3-17.3); White Blood Count 4.9 T/CUMM (4-12)
[2019-11-16 10:15] LABS: Calcium 7.8 MG/DL (8.5-10.1)
[2019-11-16 10:16] LABS: INR 1.1; Partial Thromboplastin Time 33.4 SECS (20.8-36.0)
[2019-11-16] MEDS ORDERED: LIDOCAINE 1%/EPI INJ 20 ML VIAL ONE ×2 (10:26→11:00)
[2019-11-16 10:43] LABS: Anisocytosis 1+; Band Neutrophils 2 % (0-10); Eosinophils 6 % (0-10); Hypochromasia 1+; Lymphocytes 4 % (20-55); Macrocytosis 1+; Platelet Estimate Adequate; Segmented Neutrophils 83 % (50-85); Total Cells Counted 100
[2019-11-16] MEDS ORDERED: HEPARIN 5,000 UNIT/1 ML VIAL ONE (11:00)
[2019-11-16] MEDS ORDERED: BUPIVACAINE MPF 0.25% 30 ML VIAL ONE (11:00)
[2019-11-16] MEDS ORDERED: ceFAZolin 1,000 MG in SYRINGE 1 EACH IV ONE (11:11)
[2019-11-16] MEDS ORDERED: ceFAZolin 1,000 MG VIAL ONE (11:49)
[2019-11-16] MEDS ORDERED: SEVOFLURANE 1 UNIT/15 MINUTE INH ONE (12:36)
[2019-11-16] MEDS ORDERED: LIDOCAINE 2% 5 ML VIAL ONE (12:36)
[2019-11-16] MEDS ORDERED: propofoL 200 MG/20 ML VIAL IV ONE (12:36)
[2019-11-16] MEDS ORDERED: PHENYLEPHRINE 1 MG/10 ML SYRINGE IV ONE (12:37)
[2019-11-16] MEDS ORDERED: MIDAZOLAM 2 MG/2 ML VIAL ONE (12:37)
[2019-11-16] MEDS ORDERED: SODIUM CHLORIDE 0.9% 250 ML IV ONE (12:37)
[2019-11-16] MEDS ORDERED: ONDANSETRON 4 MG/2 ML VIAL ONE (12:37)
[2019-11-16] MEDS ORDERED: fentaNYL 100 MCG/2 ML VIAL ONE (12:37)
[2019-11-16] MEDS ORDERED: DEXAMETHASONE 4 MG/1 ML VIAL ONE (12:37)
[2019-11-16] MEDS ORDERED: SUCCINYLCHOLINE 200 MG/10 ML VIAL ONE (12:37)
[2019-11-16] MEDS ORDERED: ROCURONIUM 100 MG/10 ML VIAL IV ONE (12:37)
[2019-11-16] MEDS ORDERED: ALBUTEROL/IPRATROPIUM 3 ML NEB RESP TX ONE (12:58)
[2019-11-16] MEDS ORDERED: ALBUTEROL/IPRATROPIUM 3 ML NEB RESP TX STA (13:00)
[2019-11-16] MEDS ORDERED: hydrALAZINE 20 MG/1 ML VIAL IV ONE ×2 (13:19→13:56)
[2019-11-16] MEDS ORDERED: hydrALAZINE 20 MG/1 ML VIAL ONE (13:20)
[2019-11-16] MEDS ORDERED: hydrALAZINE 20 MG/1 ML VIAL IV PRN (15:42)
[2019-11-16] MEDS ORDERED: POTASSIUM CHLORIDE 20 MEQ TABLET PO PRN (16:38)
[2019-11-16] MEDS ORDERED: ALUMINUM/MAGNES/SIMETH MAX STR 30 ML UDCUP PO PRN (21:38)
[2019-11-16] MEDS: METOPROLOL SUCCINATE XL 100 MG TABLET PO SCH (22:09)
[2019-11-17 06:05] LABS: Calcium 7.8 MG/DL (8.5-10.1)
[2019-11-17 06:13] LABS: Eosinophils % 0.5 % (0.00-10.9); Hematocrit 25.6 VOL% (42.0-52.0); Hemoglobin 7.9 GM/DL (14.0-18.0); Immature Granulocytes % 1.2 %; Immature Granulocytes Absolute 0.05 #; Lymphocytes # 0.2 10*3/uL (1.4-4.0); Lymphocytes % 3.6 % (21.2-54.2); Mean Corpuscular HGB Conc 30.9 GM/DL (32-36); Mean Corpuscular Volume 91.1 FL (87-102); Mean Platelet Volume 10.6 FL (9.6-12.0); Monocytes % 7.9 % (1.7-12.7); Neutrophils % 85.8 % (38.7-73.9); Platelet Count 140 T/CUMM (130-400); Red Blood Count 2.81 MC/CUMM (3.8-5.5); White Blood Count 4.2 T/CUMM (4-12)
[2019-11-17 07:01] LABS: Band Neutrophils 12 % (0-10); Lymphocytes 2 % (20-55); Platelet Estimate Adequate; Segmented Neutrophils 80 % (50-85); Total Cells Counted 100
[2019-11-17 07:02] LABS: Anisocytosis 3+; Hypochromasia Slight
[2019-11-17 07:03] LABS: Macrocytosis 1+; Poikilocytosis Slight
[2019-11-17] MEDS: METOPROLOL SUCCINATE XL 100 MG TABLET PO SCH (08:27)
[2019-11-17 09:09] VITALS: BP 151/90
== END 2019-11-17 12:57 | disposition home or self-care (01) | DRG 252 ==
LOC: EDUNIT# → EDBD → N.ED 08:29 → N.EDINP 11:20 → N.3E 14:38
PROVIDERS: ADMIT Surgery; ATTEND Surgery

== ENCOUNTER 2019-12-20 17:59 | Inpatient (IN) ==
[2019-12-20] MEDS ORDERED: LACTATED RINGERS 1,000 ML IV ONE (18:13)
[2019-12-20] MEDS ORDERED: ACETAMINOPHEN 325 MG TABLET PO STA (18:13)
[2019-12-20] MEDS ORDERED: VANCOMYCIN INJ 1,000 MG in SODIUM CHLORIDE 0.9% 250 ML IV STA ×2 (18:25→18:35)
[2019-12-20] MEDS ORDERED: ALBUTEROL/IPRATROPIUM 3 ML NEB RESP TX STA (18:25)
[2019-12-20] MEDS ORDERED: PIPERACILLIN/TAZOBACTAM 3,375 MG in SODIUM CHLORIDE 0.9% 100 ML IV STA (18:25)
[2019-12-20] MEDS ORDERED: hydrALAZINE 20 MG/1 ML VIAL IV STA (18:34)
[2019-12-20 18:42] LABS: Basophils % 0.6 % (0.0-0.8); Hematocrit 33.5 VOL% (42.0-52.0); Hemoglobin 10.5 GM/DL (14.0-18.0); Immature Granulocytes % 0.9 %; Immature Granulocytes Absolute 0.06 #; Lymphocytes # 0.2 10*3/uL (1.4-4.0); Lymphocytes % 2.5 % (21.2-54.2); Mean Corpuscular HGB Conc 31.3 GM/DL (32-36); Mean Corpuscular Volume 89.8 FL (87-102); Mean Platelet Volume 9.8 FL (9.6-12.0); Monocytes % 2.2 % (1.7-12.7); Neutrophils % 93.8 % (38.7-73.9); Platelet Count 91 T/CUMM (130-400); Red Blood Count 3.73 MC/CUMM (3.8-5.5); Red Cell Distribution Width 16.2 % (9.3-17.3); White Blood Count 6.9 T/CUMM (4-12)
[2019-12-20 18:55] LABS: INR 1.7; PT Patient Result 18.3 SECS (9.6-12.2)
[2019-12-20 19:00] LABS: Albumin 2.6 G/DL (3.4-5.0); Bilirubin,Total 3.7 MG/DL (0.2-1.0); Calcium 8.1 MG/DL (8.5-10.1); Osmolality,Calculated 274.5 MOS/KG (273-304); Total Protein 8.1 G/DL (6.4-8.3)
[2019-12-20] MEDS ORDERED: DEXTROSE 50% 25 GM/50 ML SYRINGE IV ONE ×2 (19:05→19:43)
[2019-12-20] MEDS ORDERED: DEXTROSE 50% 25 GM/50 ML VIAL IV STA ×2 (19:09)
[2019-12-20 19:18] LABS: Band Neutrophils 17 % (0-10); Lymphocytes 2 % (20-55); Metamyelocytes 11 %; Myelocytes 1 %; Platelet Estimate Decreased; Schistocytes Slight; Segmented Neutrophils 67 % (50-85); Total Cells Counted 100
[2019-12-20 19:19] LABS: Polychromasia Slight
[2019-12-20] MEDS ORDERED: NITROGLYCERIN 2% OINT 1 INCH/GM PACK TOP STA (19:20)
[2019-12-20] MEDS ORDERED: DILTIAZEM 50 MG/10 ML VIAL IV STA (19:23)
[2019-12-20] MEDS ORDERED: diphenhydrAMINE CAP 25 MG CAPSULE PO PRN (20:44)
[2019-12-20] MEDS ORDERED: GLUCAGON 1 MG VIAL IM PRN (20:44)
[2019-12-20] MEDS ORDERED: NICOTINE 21 MG/24 HR PATCH TRANSDERM PRN (20:44)
[2019-12-20] MEDS ORDERED: MORPHINE 4 MG/1 ML VIAL IV PRN (20:44)
[2019-12-20] MEDS ORDERED: ONDANSETRON 4 MG/2 ML VIAL IV PRN (20:44)
[2019-12-20] MEDS ORDERED: ALBUTEROL 2.5 MG/3 ML NEB RESP TX PRN (20:44)
[2019-12-20 21:22] LABS: ABG Base Excess 1.4 MMOL/L (-2.5-2.5); ABG HCO3 25.7 MMOL/L (20-26); ABG Oxygen Saturation 99.1 % (95-100); ABG PCO2 31.2 MM HG (35-48); ABG PH 7.496 (7.35-7.45); ABG TCO2 21.8 MMOL/L (23-27); Allen Test Positive; Pt O2 Delivery Device Other
[2019-12-20] MEDS ORDERED: VANCOMYCIN INJ 750 MG in SODIUM CHLORIDE 0.9% 250 ML IV ONE (22:00)
[2019-12-20] MEDS: PANTOPRAZOLE 40 MG VIAL IV SCH (22:56)
[2019-12-21] MEDS: INSULIN REGULAR 100 UNIT/ML SUBCUT SCH ×4 (01:15→18:56)
[2019-12-21] MEDS ORDERED: DEXTROSE 50% 25 GM/50 ML SYRINGE IV ONE (01:16)
[2019-12-21] MEDS: DEXTROSE 50% 25 GM/50 ML VIAL IV PRN ×2 (01:20→01:22)
[2019-12-21] MEDS ORDERED: ETOMIDATE 20 MG/10 ML VIAL IV ONE (01:41)
[2019-12-21] MEDS ORDERED: ROCURONIUM 100 MG/10 ML VIAL IV ONE (01:41)
[2019-12-21] MEDS: ALBUTEROL/IPRATROPIUM 3 ML NEB RESP TX SCH ×5 (02:20→19:00)
[2019-12-21] MEDS ORDERED: PIPERACILLIN/TAZOBACTAM 3,375 MG in SODIUM CHLORIDE 0.9% 100 ML IV SCH (03:00)
[2019-12-21] MEDS: DEXTROSE 10% 250 ML IV SCH ×2 (03:23→16:00)
[2019-12-21] MEDS: DEXTROSE 10% 250 ML BAG IV PRN ×3 (05:31→14:30)
[2019-12-21 06:57] LABS: ABG Base Excess -0.2 MMOL/L (-2.5-2.5); ABG HCO3 24.2 MMOL/L (20-26); ABG Oxygen Saturation 98.1 % (95-100); ABG PCO2 49.9 MM HG (35-48); ABG PH 7.329 (7.35-7.45); ABG TCO2 23.9 MMOL/L (23-27); Allen Test Positive; Pt O2 Delivery Device Ventilator
[2019-12-21 07:49] LABS: Basophils # 0.1 10*3/uL (0.0-0.2); Basophils % 0.9 % (0.0-0.8); Eosinophils % 0.2 % (0.00-10.9); Hematocrit 33.1 VOL% (42.0-52.0); Hemoglobin 10.1 GM/DL (14.0-18.0); Immature Granulocytes % 6.6 %; Immature Granulocytes Absolute 0.38 #; Lymphocytes # 0.1 10*3/uL (1.4-4.0); Lymphocytes % 1.6 % (21.2-54.2); Mean Corpuscular HGB Conc 30.5 GM/DL (32-36); Mean Corpuscular Volume 92.2 FL (87-102); Mean Platelet Volume 10.6 FL (9.6-12.0); Monocytes % 1.9 % (1.7-12.7); Neutrophils % 88.8 % (38.7-73.9); Red Blood Count 3.59 MC/CUMM (3.8-5.5); Red Cell Distribution Width 16.2 % (9.3-17.3); White Blood Count 5.8 T/CUMM (4-12)
[2019-12-21 07:54] LABS: Platelet Count 56 T/CUMM (130-400)
[2019-12-21 08:04] LABS: Albumin 2.1 G/DL (3.4-5.0); Bilirubin,Total 3.4 MG/DL (0.2-1.0); Calcium 7.6 MG/DL (8.5-10.1); Osmolality,Calculated 278.5 MOS/KG (273-304); Total Protein 7.2 G/DL (6.4-8.3)
[2019-12-21 08:28] LABS: Band Neutrophils 18 % (0-10); Hypochromasia 1+; Lymphocytes 2 % (20-55); Metamyelocytes 6 %; Microcytosis 1+; Myelocytes 1 %; Segmented Neutrophils 63 % (50-85); Total Cells Counted 100
[2019-12-21 08:29] LABS: Burr Cells Slight; Ovalocytes Slight; Platelet Estimate Decreased
[2019-12-21] MEDS: HYDROCORTISONE 100 MG VIAL IV SCH ×3 (08:30→20:32)
[2019-12-21] MEDS ORDERED: VANCOMYCIN INJ 750 MG in SODIUM CHLORIDE 0.9% 250 ML IV PRN (11:05)
[2019-12-21] MEDS: MEROPENEM 500 MG in SODIUM CHLORIDE 0.9% 100 ML IV SCH (14:15)
[2019-12-21] MEDS ORDERED: GENTAMICIN INJ 80 MG in PREMIX 1 EACH IV ONE (15:02)
[2019-12-21] MEDS ORDERED: VANCOMYCIN INJ 1,000 MG in SODIUM CHLORIDE 0.9% 250 ML IV ONE (15:02)
[2019-12-21] MEDS ORDERED: ALBUMIN 25% 25 GM in PREMIX 1 EACH IV ONE ×2 (15:03→15:04)
[2019-12-21] MEDS: PANTOPRAZOLE 40 MG VIAL IV SCH (20:33)
[2019-12-22] MEDS: INSULIN REGULAR 100 UNIT/ML SUBCUT SCH ×4 (00:27→16:00)
[2019-12-22] MEDS: ALBUTEROL/IPRATROPIUM 3 ML NEB RESP TX SCH (01:00)
[2019-12-22] MEDS: HYDROCORTISONE 100 MG VIAL IV SCH ×4 (02:48→21:05)
[2019-12-22] MEDS: DEXTROSE 10% 250 ML IV SCH ×2 (02:51→05:24)
[2019-12-22 04:03] LABS: ABG Base Excess 0.5 MMOL/L (-2.5-2.5); ABG HCO3 24.9 MMOL/L (20-26); ABG Oxygen Saturation 99.3 % (95-100); ABG PCO2 37.7 MM HG (35-48); ABG PH 7.425 (7.35-7.45); ABG TCO2 22.8 MMOL/L (23-27); Allen Test Positive; Pt O2 Delivery Device Ventilator
[2019-12-22] MEDS ORDERED: GENTAMICIN INJ 100 MG in PREMIX 1 EACH IV PRN (08:01)
[2019-12-22] MEDS ORDERED: GENTAMICIN INJ 80 MG in PREMIX 1 EACH IV ONE (10:00)
[2019-12-22 11:28] LABS: Basophils # 0.1 10*3/uL (0.0-0.2); Basophils % 0.6 % (0.0-0.8); Hematocrit 29.8 VOL% (42.0-52.0); Hemoglobin 9.4 GM/DL (14.0-18.0); Immature Granulocytes % 0.6 %; Immature Granulocytes Absolute 0.07 #; Lymphocytes # 0.2 10*3/uL (1.4-4.0); Lymphocytes % 2.1 % (21.2-54.2); Mean Corpuscular HGB Conc 31.5 GM/DL (32-36); Mean Corpuscular Volume 90.9 FL (87-102); Monocytes % 5.6 % (1.7-12.7); Neutrophils % 91.1 % (38.7-73.9); Red Blood Count 3.28 MC/CUMM (3.8-5.5); Red Cell Distribution Width 16.5 % (9.3-17.3); White Blood Count 10.9 T/CUMM (4-12)
[2019-12-22 11:29] LABS: Platelet Count 43 T/CUMM (130-400)
[2019-12-22 11:42] LABS: Calcium 8.2 MG/DL (8.5-10.1); Osmolality,Calculated 274.9 MOS/KG (273-304)
[2019-12-22 11:55] LABS: Band Neutrophils 12 % (0-10); Hypochromasia 1+; Lymphocytes 3 % (20-55); Microcytosis 1+; Ovalocytes Slight; Segmented Neutrophils 82 % (50-85); Total Cells Counted 100
[2019-12-22 11:56] LABS: Platelet Estimate Decreased
[2019-12-22] MEDS: MEROPENEM 500 MG in SODIUM CHLORIDE 0.9% 100 ML IV SCH (14:10)
[2019-12-22] MEDS ORDERED: DIGOXIN 0.5 MG/2 ML AMP IV ONE (14:30)
[2019-12-22] MEDS: METOPROLOL TARTRATE 100 MG TABLET PER TUBE SCH ×2 (14:36→20:17)
[2019-12-22] MEDS: PANTOPRAZOLE 40 MG VIAL IV SCH (20:10)
[2019-12-23] MEDS: INSULIN REGULAR 100 UNIT/ML SUBCUT SCH ×5 (00:54→23:59)
[2019-12-23 04:22] LABS: ABG Base Excess -0.6 MMOL/L (-2.5-2.5); ABG Oxygen Saturation 99.6 % (95-100); ABG PCO2 37.6 MM HG (35-48); ABG PH 7.409 (7.35-7.45); ABG TCO2 21.8 MMOL/L (23-27)
[2019-12-23 05:24] LABS: Basophils % 0.3 % (0.0-0.8); Hematocrit 27.6 VOL% (42.0-52.0); Hemoglobin 8.9 GM/DL (14.0-18.0); Immature Granulocytes % 0.9 %; Immature Granulocytes Absolute 0.09 #; Lymphocytes # 0.3 10*3/uL (1.4-4.0); Lymphocytes % 3.2 % (21.2-54.2); Mean Corpuscular HGB Conc 32.2 GM/DL (32-36); Mean Corpuscular Volume 87.9 FL (87-102); Monocytes % 5.3 % (1.7-12.7); Neutrophils % 90.3 % (38.7-73.9); Red Blood Count 3.14 MC/CUMM (3.8-5.5); Red Cell Distribution Width 16.4 % (9.3-17.3); White Blood Count 10.1 T/CUMM (4-12)
[2019-12-23 05:25] LABS: Platelet Count 47 T/CUMM (130-400)
[2019-12-23] MEDS: HYDROCORTISONE 100 MG VIAL IV SCH ×4 (05:32→21:50)
[2019-12-23 05:42] LABS: Band Neutrophils 2 % (0-10); Burr Cells Slight; Hypochromasia 1+; Lymphocytes 1 % (20-55); Ovalocytes Slight; Platelet Estimate Decreased; Segmented Neutrophils 93 % (50-85); Total Cells Counted 100
[2019-12-23 05:43] LABS: Microcytosis 1+
[2019-12-23 05:48] LABS: Prealbumin 9.6 MG/DL (20-40)
[2019-12-23 05:56] LABS: Albumin 2.2 G/DL (3.4-5.0); Bilirubin,Total 3.7 MG/DL (0.2-1.0); Calcium 7.8 MG/DL (8.5-10.1); Osmolality,Calculated 289.7 MOS/KG (273-304); Total Protein 6.4 G/DL (6.4-8.3)
[2019-12-23] MEDS ORDERED: SCOPOLAMINE 1.5 MG PATCH TRANSDERM ONE (11:27)
[2019-12-23] MEDS: MEROPENEM 500 MG in SODIUM CHLORIDE 0.9% 100 ML IV SCH (13:00)
[2019-12-23] MEDS ORDERED: GENTAMICIN INJ 100 MG in PREMIX 1 EACH IV ONE (17:00)
[2019-12-23] MEDS ORDERED: VANCOMYCIN INJ 750 MG in SODIUM CHLORIDE 0.9% 250 ML IV ONE (17:00)
[2019-12-23] MEDS ORDERED: INSULIN REGULAR 100 UNIT/ML SUBCUT SCH (17:00)
[2019-12-23] MEDS ORDERED: HEPARIN LOCK FLUSH 500 UNIT/5 ML SYRINGE IV PRN (17:50)
[2019-12-23] MEDS ORDERED: HEPARIN 10,000 UNIT/10 ML VIAL IV PRN (18:30)
[2019-12-23] MEDS: PANTOPRAZOLE 40 MG VIAL IV SCH (20:57)
[2019-12-24 05:06] LABS: ABG Base Excess -2.1 MMOL/L (-2.5-2.5); ABG HCO3 23.2 MMOL/L (20-26); ABG Oxygen Saturation 97.2 % (95-100); ABG PCO2 41.6 MM HG (35-48); ABG PH 7.364 (7.35-7.45); ABG PO2 105.9 MM HG (80-95); ABG TCO2 24.5 MMOL/L (23-27); Allen Test Positive; Pt O2 Delivery Device Ventilator
[2019-12-24] MEDS: INSULIN REGULAR 100 UNIT/ML SUBCUT SCH ×3 (05:22→17:32)
[2019-12-24] MEDS: HYDROCORTISONE 100 MG VIAL IV SCH ×3 (05:22→21:01)
[2019-12-24 08:02] LABS: Basophils % 0.1 % (0.0-0.8); Eosinophils % 0.1 % (0.00-10.9); Hematocrit 26.8 VOL% (42.0-52.0); Hemoglobin 8.7 GM/DL (14.0-18.0); Immature Granulocytes % 2.2 %; Immature Granulocytes Absolute 0.22 #; Lymphocytes # 0.3 10*3/uL (1.4-4.0); Lymphocytes % 2.8 % (21.2-54.2); Mean Corpuscular HGB Conc 32.5 GM/DL (32-36); Mean Corpuscular Volume 87.3 FL (87-102); Monocytes % 7.8 % (1.7-12.7); Red Blood Count 3.07 MC/CUMM (3.8-5.5); Red Cell Distribution Width 16.7 % (9.3-17.3); White Blood Count 9.9 T/CUMM (4-12)
[2019-12-24 08:03] LABS: Platelet Count 55 T/CUMM (130-400)
[2019-12-24 08:20] LABS: Hypochromasia 1+; Lymphocytes 4 % (20-55); Ovalocytes Slight; Platelet Estimate Decreased; Segmented Neutrophils 91 % (50-85); Total Cells Counted 100
[2019-12-24 08:21] LABS: Microcytosis 1+
[2019-12-24 08:36] LABS: Calcium 7.7 MG/DL (8.5-10.1); Osmolality,Calculated 304.4 MOS/KG (273-304)
[2019-12-24] MEDS: METOPROLOL TARTRATE 50 MG TABLET PO SCH (08:43)
[2019-12-24] MEDS: MEROPENEM 500 MG in SODIUM CHLORIDE 0.9% 100 ML IV SCH (13:06)
[2019-12-24] MEDS ORDERED: GENTAMICIN INJ 100 MG in PREMIX 1 EACH IV ONE (16:00)
[2019-12-24] MEDS ORDERED: VANCOMYCIN INJ 750 MG in SODIUM CHLORIDE 0.9% 250 ML IV ONE (17:00)
[2019-12-24] MEDS: ALBUTEROL/IPRATROPIUM 3 ML NEB RESP TX SCH (17:21)
[2019-12-24] MEDS: PANTOPRAZOLE 40 MG VIAL IV SCH (20:59)
[2019-12-25] MEDS: INSULIN REGULAR 100 UNIT/ML SUBCUT SCH ×4 (01:56→18:13)
[2019-12-25 03:56] LABS: ABG Base Excess -0.1 MMOL/L (-2.5-2.5); ABG HCO3 24.3 MMOL/L (20-26); ABG Oxygen Saturation 97.9 % (95-100); ABG PCO2 38.5 MM HG (35-48); ABG PH 7.409 (7.35-7.45); ABG TCO2 22.4 MMOL/L (23-27); Allen Test Positive; Pt O2 Delivery Device Ventilator
[2019-12-25 05:58] LABS: Basophils % 0.3 % (0.0-0.8); Eosinophils % 0.3 % (0.00-10.9); Hemoglobin 9.4 GM/DL (14.0-18.0); Immature Granulocytes % 5.8 %; Immature Granulocytes Absolute 0.42 #; Lymphocytes # 0.3 10*3/uL (1.4-4.0); Lymphocytes % 3.7 % (21.2-54.2); Mean Corpuscular HGB Conc 32.4 GM/DL (32-36); Mean Corpuscular Volume 86.1 FL (87-102); Monocytes % 13.3 % (1.7-12.7); Neutrophils % 76.6 % (38.7-73.9); Platelet Count 55 T/CUMM (130-400); Red Blood Count 3.37 MC/CUMM (3.8-5.5); Red Cell Distribution Width 16.9 % (9.3-17.3); White Blood Count 7.3 T/CUMM (4-12)
[2019-12-25 06:01] LABS: Calcium 7.8 MG/DL (8.5-10.1); Osmolality,Calculated 288.7 MOS/KG (273-304)
[2019-12-25] MEDS: HYDROCORTISONE 100 MG VIAL IV SCH ×3 (06:21→21:22)
[2019-12-25 06:27] LABS: Band Neutrophils 5 % (0-10); Hypochromasia 1+; Lymphocytes 3 % (20-55); Microcytosis 1+; Ovalocytes Slight; Platelet Estimate Decreased; Segmented Neutrophils 83 % (50-85); Total Cells Counted 100
[2019-12-25] MEDS: METOPROLOL TARTRATE 50 MG TABLET PO SCH (12:43)
[2019-12-25] MEDS: CEFTAROLINE 200 MG in SODIUM CHLORIDE 0.9% 100 ML IV SCH (15:28)
[2019-12-25] MEDS: PANTOPRAZOLE 40 MG VIAL IV SCH (21:21)
[2019-12-25] MEDS: hydrALAZINE 20 MG/1 ML VIAL IV PRN (21:23)
[2019-12-26] MEDS: INSULIN REGULAR 100 UNIT/ML SUBCUT SCH ×4 (00:20→17:55)
[2019-12-26] MEDS: CEFTAROLINE 200 MG in SODIUM CHLORIDE 0.9% 100 ML IV SCH ×2 (03:58→16:30)
[2019-12-26 04:56] LABS: Basophils % 0.3 % (0.0-0.8); Eosinophils % 0.4 % (0.00-10.9); Hemoglobin 9.6 GM/DL (14.0-18.0); Immature Granulocytes % 5.8 %; Immature Granulocytes Absolute 0.52 #; Lymphocytes # 0.3 10*3/uL (1.4-4.0); Lymphocytes % 3.2 % (21.2-54.2); Mean Corpuscular HGB Conc 34.3 GM/DL (32-36); Mean Corpuscular Volume 82.1 FL (87-102); Monocytes % 7.2 % (1.7-12.7); Neutrophils % 83.1 % (38.7-73.9); Red Blood Count 3.41 MC/CUMM (3.8-5.5); Red Cell Distribution Width 17.1 % (9.3-17.3)
[2019-12-26 05:00] LABS: Platelet Count 90 T/CUMM (130-400)
[2019-12-26 05:26] LABS: Eosinophils 1 % (0-10); Hypochromasia 1+; Lymphocytes 3 % (20-55); Microcytosis 1+; Ovalocytes Slight; Platelet Estimate Decreased; Segmented Neutrophils 90 % (50-85); Total Cells Counted 100
[2019-12-26 05:30] LABS: Calcium 8.2 MG/DL (8.5-10.1); Osmolality,Calculated 291.1 MOS/KG (273-304)
[2019-12-26] MEDS: HYDROCORTISONE 100 MG VIAL IV SCH ×4 (05:45→21:43)
[2019-12-26] MEDS ORDERED: VANCOMYCIN IV SCH (08:39)
[2019-12-26] MEDS ORDERED: HEPARIN IV SCH (08:39)
[2019-12-26] MEDS: METOPROLOL TARTRATE 50 MG TABLET PO SCH (09:28)
[2019-12-26] MEDS ORDERED: VANCOMYCIN INJ 1,000 MG in SODIUM CHLORIDE 0.9% 250 ML IV ONE (14:00)
[2019-12-26] MEDS: hydrALAZINE 20 MG/1 ML VIAL IV PRN (16:44)
[2019-12-26] MEDS: PANTOPRAZOLE 40 MG VIAL IV SCH (21:42)
[2019-12-27] MEDS: INSULIN REGULAR 100 UNIT/ML SUBCUT SCH ×4 (00:01→17:38)
[2019-12-27] MEDS: CEFTAROLINE 200 MG in SODIUM CHLORIDE 0.9% 100 ML IV SCH ×2 (03:13→16:44)
[2019-12-27 05:24] LABS: Basophils % 0.3 % (0.0-0.8); Eosinophils # 0.1 10*3/uL (0.0-0.87); Eosinophils % 0.8 % (0.00-10.9); Hematocrit 27.7 VOL% (42.0-52.0); Hemoglobin 9.3 GM/DL (14.0-18.0); Immature Granulocytes % 6.8 %; Immature Granulocytes Absolute 0.68 #; Lymphocytes # 0.4 10*3/uL (1.4-4.0); Lymphocytes % 3.9 % (21.2-54.2); Mean Corpuscular HGB Conc 33.6 GM/DL (32-36); Mean Corpuscular Volume 81.5 FL (87-102); Monocytes % 7.9 % (1.7-12.7); Neutrophils % 80.3 % (38.7-73.9); Platelet Count 146 T/CUMM (130-400); Red Cell Distribution Width 17.1 % (9.3-17.3)
[2019-12-27 05:54] LABS: Lymphocytes 5 % (20-55); Metamyelocytes 1 %; Segmented Neutrophils 86 % (50-85); Total Cells Counted 100
[2019-12-27 05:55] LABS: Calcium 8.2 MG/DL (8.5-10.1); Osmolality,Calculated 279.2 MOS/KG (273-304)
[2019-12-27 05:55] LABS: Anisocytosis 1+; Ovalocytes 1+; Platelet Estimate Normal; Target Cells 1+
[2019-12-27] MEDS: HYDROCORTISONE 100 MG VIAL IV SCH ×3 (06:11→22:23)
[2019-12-27] MEDS: METOPROLOL TARTRATE 50 MG TABLET PO SCH (07:59)
[2019-12-27] MEDS: PANTOPRAZOLE 40 MG VIAL IV SCH (20:13)
[2019-12-27] MEDS: hydrALAZINE 20 MG/1 ML VIAL IV PRN (20:14)
[2019-12-28] MEDS: INSULIN REGULAR 100 UNIT/ML SUBCUT SCH ×4 (00:50→18:33)
[2019-12-28] MEDS: CEFTAROLINE 200 MG in SODIUM CHLORIDE 0.9% 100 ML IV SCH ×2 (02:00→16:46)
[2019-12-28 04:40] LABS: Basophils % 0.2 % (0.0-0.8); Eosinophils # 0.1 10*3/uL (0.0-0.87); Eosinophils % 0.7 % (0.00-10.9); Hemoglobin 8.7 GM/DL (14.0-18.0); Immature Granulocytes Absolute 0.48 #; Lymphocytes # 0.4 10*3/uL (1.4-4.0); Lymphocytes % 4.2 % (21.2-54.2); Mean Corpuscular HGB Conc 33.5 GM/DL (32-36); Mean Corpuscular Volume 83.1 FL (87-102); Mean Platelet Volume 11.4 FL (9.6-12.0); Monocytes % 6.9 % (1.7-12.7); Platelet Count 178 T/CUMM (130-400); Red Blood Count 3.13 MC/CUMM (3.8-5.5); Red Cell Distribution Width 17.3 % (9.3-17.3); White Blood Count 9.5 T/CUMM (4-12)
[2019-12-28 05:08] LABS: Calcium 8.6 MG/DL (8.5-10.1); Osmolality,Calculated 278.6 MOS/KG (273-304)
[2019-12-28 05:59] LABS: Anisocytosis 1+; Eosinophils 3 % (0-10); Lymphocytes 5 % (20-55); Platelet Estimate Adequate; Segmented Neutrophils 86 % (50-85); Total Cells Counted 100
[2019-12-28] MEDS: HYDROCORTISONE 100 MG VIAL IV SCH ×3 (06:27→22:29)
[2019-12-28] MEDS: METOPROLOL TARTRATE 50 MG TABLET PO SCH (10:12)
[2019-12-28] MEDS: hydrALAZINE 20 MG/1 ML VIAL IV PRN (14:50)
[2019-12-28] MEDS ORDERED: VANCOMYCIN INJ 1,000 MG in SODIUM CHLORIDE 0.9% 250 ML IV ONE (17:00)
[2019-12-28] MEDS: PANTOPRAZOLE 40 MG VIAL IV SCH (20:58)
[2019-12-28] MEDS ORDERED: PHENOL 1.4% THROAT SPRAY 177 ML BOTTLE PO PRN (22:35)
[2019-12-29] MEDS: INSULIN REGULAR 100 UNIT/ML SUBCUT SCH ×4 (00:50→17:33)
[2019-12-29] MEDS: CEFTAROLINE 200 MG in SODIUM CHLORIDE 0.9% 100 ML IV SCH ×2 (03:17→16:19)
[2019-12-29] MEDS: HYDROCORTISONE 100 MG VIAL IV SCH ×4 (05:44→22:17)
[2019-12-29] MEDS ORDERED: VANCOMYCIN INJ 750 MG in SODIUM CHLORIDE 0.9% 250 ML IV PRN (08:25)
[2019-12-29] MEDS: METOPROLOL TARTRATE 50 MG TABLET PO SCH (08:42)
[2019-12-29] MEDS ORDERED: EPOETIN ALFA-EPBX 2,000 UNIT/ML VIAL IV PRN (13:10)
[2019-12-29] MEDS: PANTOPRAZOLE 40 MG VIAL IV SCH (21:02)
[2019-12-30] MEDS: INSULIN REGULAR 100 UNIT/ML SUBCUT SCH ×3 (00:50→15:55)
[2019-12-30] MEDS: CEFTAROLINE 200 MG in SODIUM CHLORIDE 0.9% 100 ML IV SCH (02:04)
[2019-12-30] MEDS: HYDROCORTISONE 100 MG VIAL IV SCH ×2 (05:49→15:56)
[2019-12-30] MEDS ORDERED: VANCOMYCIN INJ 1,000 MG in SODIUM CHLORIDE 0.9% 250 ML IV PRN (09:25)
[2019-12-30] MEDS: METOPROLOL TARTRATE 50 MG TABLET PO SCH (11:49)
[2019-12-30] MEDS ORDERED: SEVELAMER CARBONATE POWDER 2.4 GM PACK PO SCH (12:00)
[2019-12-30 16:03] VITALS: BP 151/118
[2019-12-30] MEDS ORDERED: VANCOMYCIN INJ 1,000 MG in SODIUM CHLORIDE 0.9% 250 ML IV ONE (17:00)
[2019-12-30] MEDS ORDERED: APIXABAN 2.5 MG TABLET PO SCH (21:00)
[2019-12-30] MEDS ORDERED: NON-FORMULARY MEDICATION (Metoprolol Succinate 100 MG) PO SCH (21:00)
== END 2019-12-30 15:56 | disposition home or self-care (01) | DRG 314 ==
LOC: N.ED 17:59 → SUATTDRO 20:44 → N.EDINP 20:44 → N.CC 21:19 → N.5E 12-26 16:32
PROVIDERS: ADMIT Internal Medicine; ATTEND Internal Medicine Geriatric Medicine

== ENCOUNTER 2020-04-11 23:31 | Inpatient (IN) ==
[2020-04-12] MEDS ORDERED: hydrALAZINE 20 MG/1 ML VIAL IV STA (01:31)
[2020-04-12] MEDS ORDERED: hydrALAZINE 20 MG/1 ML VIAL ONE (01:31)
[2020-04-12 01:40] LABS: Basophils # 0.1 10*3/uL (0.0-0.2); Eosinophils # 0.5 10*3/uL (0.0-0.87); Eosinophils % 8.3 % (0.00-10.9); Hematocrit 31.6 VOL% (42.0-52.0); Immature Granulocytes % 0.5 %; Immature Granulocytes Absolute 0.03 #; Lymphocytes # 0.9 10*3/uL (1.4-4.0); Lymphocytes % 15.4 % (21.2-54.2); Mean Corpuscular HGB Conc 31.6 GM/DL (32-36); Mean Corpuscular Volume 82.9 FL (87-102); Mean Platelet Volume 9.3 FL (9.6-12.0); Monocytes % 9.2 % (1.7-12.7); Neutrophils % 64.6 % (38.7-73.9); Platelet Count 174 T/CUMM (130-400); Red Blood Count 3.81 MC/CUMM (3.8-5.5)
[2020-04-12 01:55] LABS: Calcium 9.1 MG/DL (8.5-10.1); Osmolality,Calculated 278.8 MOS/KG (273-304)
[2020-04-12] MEDS ORDERED: cloNIDine 0.1 MG TABLET PO STA (02:27)
[2020-04-12] MEDS ORDERED: hydrALAZINE 20 MG/1 ML VIAL IV PRN (02:35)
[2020-04-12] MEDS ORDERED: ACETAMINOPHEN 325 MG TABLET PO PRN (02:35)
[2020-04-12] MEDS ORDERED: GLUCAGON 1 MG VIAL IM PRN (02:40)
[2020-04-12] MEDS ORDERED: DEXTROSE 50% 25 GM/50 ML VIAL IV PRN (02:40)
[2020-04-12] MEDS ORDERED: ALUMINUM/MAGNES/SIMETH MAX STR 30 ML UDCUP PO PRN (02:40)
[2020-04-12] MEDS ORDERED: ONDANSETRON 4 MG/2 ML VIAL IV PRN (02:40)
[2020-04-12] MEDS ORDERED: SIMETHICONE CHEW 125 MG TABLET PO PRN (02:40)
[2020-04-12] MEDS ORDERED: niCARdipine 25 MG/10 ML VIAL IV ONE (03:44)
[2020-04-12] MEDS: niCARdipine INJ 25 MG in SODIUM CHLORIDE 0.9% 240 ML IV PRN ×3 (03:45→15:43)
[2020-04-12 03:49] LABS: Albumin 3.8 G/DL (3.4-5.0); Bilirubin,Direct 0.26 MG/DL (0.0-0.20); Bilirubin,Indirect 0.9 MG/DL (0.0-1.0); Bilirubin,Total 1.2 MG/DL (0.2-1.0); Total Protein 9.2 G/DL (6.4-8.3)
[2020-04-12 04:46] LABS: Thyroid Stimulating Hormone 3.23 uIU/ml (0.358-3.74)
[2020-04-12] MEDS ORDERED: diphenhydrAMINE 50 MG/1 ML VIAL IV ONE (05:03)
[2020-04-12] MEDS ORDERED: LABETALOL 20 MG/4 ML SYRINGE IV PRN (05:09)
[2020-04-12] MEDS ORDERED: LABETALOL 20 MG/4 ML SYRINGE IV SCH (05:30)
[2020-04-12 06:02] LABS: Basophils # 0.1 10*3/uL (0.0-0.2); Eosinophils # 0.3 10*3/uL (0.0-0.87); Eosinophils % 4.9 % (0.00-10.9); Hematocrit 36.1 VOL% (42.0-52.0); Hemoglobin 11.5 GM/DL (14.0-18.0); Immature Granulocytes % 0.4 %; Immature Granulocytes Absolute 0.02 #; Lymphocytes # 0.6 10*3/uL (1.4-4.0); Lymphocytes % 10.9 % (21.2-54.2); Mean Corpuscular HGB Conc 31.9 GM/DL (32-36); Mean Corpuscular Volume 80.8 FL (87-102); Monocytes % 6.6 % (1.7-12.7); Neutrophils % 75.2 % (38.7-73.9); Red Blood Count 4.47 MC/CUMM (3.8-5.5); Red Cell Distribution Width 19.1 % (9.3-17.3); White Blood Count 5.5 T/CUMM (4-12)
[2020-04-12 06:08] LABS: Platelet Count 103 T/CUMM (130-400)
[2020-04-12 06:49] LABS: Calcium 9.4 MG/DL (8.5-10.1); Hypochromasia 1+; Microcytosis 1+; Osmolality,Calculated 276.1 MOS/KG (273-304); Risk Ratio 2.71; VLDL CHOLESTEROL 24.6 MG/DL
[2020-04-12 06:50] LABS: Ovalocytes Slight
[2020-04-12] MEDS: hydrALAZINE 20 MG/1 ML VIAL IV PRN ×2 (07:45→19:55)
[2020-04-12] MEDS: PANTOPRAZOLE 40 MG TABLET PO SCH (08:18)
[2020-04-12] MEDS: METOPROLOL SUCCINATE XL 100 MG TABLET PO SCH ×2 (08:18→20:00)
[2020-04-12] MEDS: HEPARIN 5,000 UNIT/1 ML VIAL SUBCUT SCH ×2 (08:18→20:00)
[2020-04-12] MEDS ORDERED: amLODIPine 10 MG TABLET PO SCH (09:00)
[2020-04-12] MEDS: diphenhydrAMINE CAP 25 MG CAPSULE PO PRN (14:07)
[2020-04-12] MEDS ORDERED: POLYETHYLENE GLYCOL POWDER 17 GM PACK PO PRN (20:19)
[2020-04-13] MEDS: hydrALAZINE 20 MG/1 ML VIAL IV PRN (02:45)
[2020-04-13] MEDS: diphenhydrAMINE CAP 25 MG CAPSULE PO PRN ×2 (07:17→21:51)
[2020-04-13] MEDS: PANTOPRAZOLE 40 MG TABLET PO SCH (08:27)
[2020-04-13] MEDS: amLODIPine 10 MG TABLET PO SCH (08:27)
[2020-04-13] MEDS: METOPROLOL SUCCINATE XL 100 MG TABLET PO SCH ×2 (08:27→21:49)
[2020-04-13] MEDS: HEPARIN 5,000 UNIT/1 ML VIAL SUBCUT SCH ×2 (08:39→21:49)
[2020-04-13] MEDS ORDERED: HEPARIN 10,000 UNIT/10 ML VIAL IV PRN (10:19)
[2020-04-13 11:43] LABS: Hepatitis B Core IgM Quant 0.15 Index; Hepatitis B Surface Ag Quant < 0.10 Index; Hepatitis B Surface Ag Result Negative (Negative); Hepatitis C Virus Ab Quant 0.06 Index; Hepatitis C Virus Ab Result Negative (Negative)
[2020-04-14 07:27] LABS: Basophils # 0.1 10*3/uL (0.0-0.2); Basophils % 2.1 % (0.0-0.8); Eosinophils # 0.5 10*3/uL (0.0-0.87); Eosinophils % 10.3 % (0.00-10.9); Hematocrit 28.5 VOL% (42.0-52.0); Immature Granulocytes % 0.7 %; Immature Granulocytes Absolute 0.03 #; Lymphocytes # 0.6 10*3/uL (1.4-4.0); Lymphocytes % 13.7 % (21.2-54.2); Mean Corpuscular HGB Conc 32.3 GM/DL (32-36); Mean Corpuscular Volume 82.6 FL (87-102); Mean Platelet Volume 9.3 FL (9.6-12.0); Monocytes % 14.2 % (1.7-12.7); NRBC # 0.02 10*3/uL; Red Cell Distribution Width 19.4 % (9.3-17.3); White Blood Count 4.4 T/CUMM (4-12)
[2020-04-14 07:29] LABS: Hemoglobin 9.2 GM/DL (14.0-18.0); Platelet Count 158 T/CUMM (130-400); Red Blood Count 3.45 MC/CUMM (3.8-5.5)
[2020-04-14 07:42] LABS: Calcium 8.4 MG/DL (8.5-10.1); Osmolality,Calculated 276.1 MOS/KG (273-304)
[2020-04-14 07:50] VITALS: BP 125/59
[2020-04-14 07:55] LABS: Hypochromasia 1+; Microcytosis Slight; Platelet Estimate Adequate
[2020-04-14] MEDS: HEPARIN 5,000 UNIT/1 ML VIAL SUBCUT SCH (08:49)
[2020-04-14] MEDS: METOPROLOL SUCCINATE XL 100 MG TABLET PO SCH (08:50)
[2020-04-14] MEDS: amLODIPine 10 MG TABLET PO SCH (08:50)
[2020-04-14] MEDS: PANTOPRAZOLE 40 MG TABLET PO SCH (08:50)
== END 2020-04-14 10:39 | disposition home or self-care (01) | DRG 304 ==
LOC: N.ED 23:31 → N.EDINP 04-12 02:27 → SUATTDRO 04-12 02:27 → N.ICU 04-12 04:00 → N.3E 04-13 13:19
PROVIDERS: ADMIT Internal Medicine; ATTEND Internal Medicine

== ENCOUNTER 2020-04-29 20:30 | Observation (INO) ==
[2020-04-29] MEDS ORDERED: CLINDAMYCIN INJ 900 MG in PREMIX 1 EACH IV STA (21:00)
[2020-04-29] MEDS ORDERED: ONDANSETRON 4 MG/2 ML VIAL IV STA (21:48)
[2020-04-29] MEDS ORDERED: fentaNYL 100 MCG/2 ML VIAL IV STA (21:48)
[2020-04-29 21:52] LABS: Basophils # 0.2 10*3/uL (0.0-0.2); Eosinophils # 0.5 10*3/uL (0.0-0.87); Eosinophils % 7.3 % (0.00-10.9); Hematocrit 32.1 VOL% (42.0-52.0); Hemoglobin 10.1 GM/DL (14.0-18.0); Immature Granulocytes % 0.3 %; Immature Granulocytes Absolute 0.02 #; Lymphocytes # 0.7 10*3/uL (1.4-4.0); Lymphocytes % 11.2 % (21.2-54.2); Mean Corpuscular HGB Conc 31.5 GM/DL (32-36); Mean Corpuscular Volume 85.4 FL (87-102); Mean Platelet Volume 9.9 FL (9.6-12.0); Monocytes % 10.4 % (1.7-12.7); Neutrophils % 67.8 % (38.7-73.9); Platelet Count 205 T/CUMM (130-400); Red Blood Count 3.76 MC/CUMM (3.8-5.5); Red Cell Distribution Width 20.6 % (9.3-17.3); White Blood Count 6.3 T/CUMM (4-12)
[2020-04-29 21:58] LABS: INR 1.1; PT Patient Result 11.4 SECS (9.8-11.9)
[2020-04-29 22:08] LABS: Albumin 3.3 G/DL (3.4-5.0); Bilirubin,Total 0.7 MG/DL (0.2-1.0); Calcium 9.3 MG/DL (8.5-10.1); Osmolality,Calculated 272.1 MOS/KG (273-304); Total Protein 9.2 G/DL (6.4-8.3)
[2020-04-29 22:14] LABS: Eosinophils 5 % (0-10); Hypochromasia Slight; Lymphocytes 14 % (20-55); Platelet Estimate Normal; Segmented Neutrophils 74 % (50-85); Total Cells Counted 100
[2020-04-29] MEDS ORDERED: hydrALAZINE 20 MG/1 ML VIAL IV STA (22:18)
[2020-04-29] MEDS ORDERED: ONDANSETRON 4 MG/2 ML VIAL IV PRN (22:31)
[2020-04-30] MEDS: fentaNYL 100 MCG/2 ML VIAL IV PRN ×3 (05:50→14:07)
[2020-04-30] MEDS: CLINDAMYCIN INJ 900 MG in PREMIX 1 EACH IV SCH ×3 (06:07→21:02)
[2020-04-30] MEDS ORDERED: amLODIPine 10 MG TABLET PO SCH (09:00)
[2020-04-30] MEDS ORDERED: METOPROLOL SUCCINATE XL 100 MG TABLET PO SCH (09:00)
[2020-04-30] MEDS: PANTOPRAZOLE 40 MG TABLET PO SCH (10:10)
[2020-04-30] MEDS ORDERED: hydrALAZINE 20 MG/1 ML VIAL IV PRN (14:54)
[2020-04-30] MEDS ORDERED: diphenhydrAMINE 50 MG/1 ML VIAL IV PRN (15:43)
[2020-04-30] MEDS ORDERED: cloNIDine 0.1 MG TABLET PO SCH (16:08)
[2020-05-01 03:54] LABS: Basophils # 0.2 10*3/uL (0.0-0.2); Basophils % 2.8 % (0.0-0.8); Eosinophils # 0.5 10*3/uL (0.0-0.87); Eosinophils % 8.1 % (0.00-10.9); Hematocrit 29.9 VOL% (42.0-52.0); Hemoglobin 9.5 GM/DL (14.0-18.0); Immature Granulocytes % 0.5 %; Immature Granulocytes Absolute 0.03 #; Lymphocytes # 0.8 10*3/uL (1.4-4.0); Lymphocytes % 12.3 % (21.2-54.2); Mean Corpuscular HGB Conc 31.8 GM/DL (32-36); Mean Corpuscular Volume 84.9 FL (87-102); Mean Platelet Volume 9.3 FL (9.6-12.0); Monocytes % 13.3 % (1.7-12.7); Platelet Count 168 T/CUMM (130-400); Red Blood Count 3.52 MC/CUMM (3.8-5.5); Red Cell Distribution Width 20.8 % (9.3-17.3); White Blood Count 6.3 T/CUMM (4-12)
[2020-05-01 04:18] LABS: Calcium 8.5 MG/DL (8.5-10.1); Osmolality,Calculated 273.4 MOS/KG (273-304)
[2020-05-01 05:13] LABS: Eosinophils 8 % (0-10); Lymphocytes 5 % (20-55); Segmented Neutrophils 81 % (50-85); Total Cells Counted 100
[2020-05-01 05:14] LABS: Anisocytosis 1+; Hypochromasia 1+
[2020-05-01 05:15] LABS: Ovalocytes 1+; Platelet Estimate Adequate
[2020-05-01] MEDS: CLINDAMYCIN INJ 900 MG in PREMIX 1 EACH IV SCH ×2 (05:49→15:19)
[2020-05-01 08:02] VITALS: BP 202/97
[2020-05-01] MEDS: PANTOPRAZOLE 40 MG TABLET PO SCH (08:41)
[2020-05-01] MEDS ORDERED: amLODIPine 10 MG TABLET PO SCH (09:00)
[2020-05-01] MEDS ORDERED: METOPROLOL TARTRATE 100 MG TABLET PO SCH (09:00)
[2020-05-01] MEDS ORDERED: HEPARIN 10,000 UNIT/10 ML VIAL IV PRN (12:31)
== END 2020-05-01 16:32 | disposition home or self-care (01) ==
LOC: N.EDINP 20:30 → N.ED 20:30 → N.EDINP 23:31 → N.3E 23:52
PROVIDERS: ADMIT Surgery; ATTEND Surgery

== ENCOUNTER 2021-12-06 01:27 | Inpatient (IN) ==
[2021-12-06] MEDS ORDERED: FAMOTIDINE 20 MG/2 ML VIAL IV STA (01:50)
[2021-12-06] MEDS ORDERED: diphenhydrAMINE 50 MG/1 ML VIAL IV STA (01:50)
[2021-12-06] MEDS ORDERED: methylPREDNISolone SOD SUC 125 MG/2 ML VIAL IV STA (01:50)
[2021-12-06] MEDS ORDERED: EPINEPHrine 1 MG/ML VIAL SUBCUT STA (01:51)
[2021-12-06] MEDS ORDERED: CLINDAMYCIN INJ 900 MG/50 ML PREMIX IV ONE (01:51)
[2021-12-06 02:31] LABS: Basophils # 0.1 10*3/uL (0.0-0.2); Basophils % 1.4 % (0.0-0.8); Eosinophils # 0.5 10*3/uL (0.0-0.87); Eosinophils % 6.3 % (0.00-10.9); Hematocrit 31.4 VOL% (42.0-52.0); Immature Granulocytes % 0.9 %; Immature Granulocytes Absolute 0.07 #; Lymphocytes # 0.5 10*3/uL (1.4-4.0); Lymphocytes % 5.8 % (21.2-54.2); Mean Corpuscular HGB Conc 31.8 GM/DL (32-36); Mean Corpuscular Volume 85.8 FL (87-102); Mean Platelet Volume 8.8 FL (9.6-12.0); Monocytes % 10.9 % (1.7-12.7); Neutrophils % 74.7 % (38.7-73.9); Platelet Count 109 T/CUMM (130-400); Red Blood Count 3.66 MC/CUMM (3.8-5.5); Red Cell Distribution Width 19.5 % (9.3-17.3)
[2021-12-06 02:54] LABS: Albumin 2.8 G/DL (3.4-5.0); Bilirubin,Total 1.3 MG/DL (0.20-1.00); Calcium 8.4 MG/DL (8.5-10.1); Osmolality,Calculated 271.9 MOS/KG (273-304); Potassium 4.1 MMOL/L (3.5-5.1); Total Protein 8.1 G/DL (6.4-8.2)
[2021-12-06] MEDS ORDERED: hydrALAZINE 20 MG/1 ML VIAL IV STA ×2 (03:17→03:19)
[2021-12-06] MEDS ORDERED: hydrALAZINE 20 MG/1 ML VIAL IV PRN (03:36)
[2021-12-06] MEDS ORDERED: ONDANSETRON 4 MG/2 ML VIAL IV PRN (03:36)
[2021-12-06 06:38] VITALS: BP 167/80
[2021-12-06] MEDS ORDERED: AMPICILLIN/SULBACTAM 3,000 MG in SODIUM CHLORIDE 0.9% 100 ML IV SCH (08:00)
[2021-12-06] MEDS ORDERED: CLINDAMYCIN INJ 900 MG/50 ML PREMIX IV SCH (11:00)
== END 2021-12-06 06:37 | disposition left against medical advice (07) | DRG 157 ==
LOC: N.ED 01:27 → N.EDINP 03:36
PROVIDERS: ADMIT Internal Medicine; ATTEND Internal Medicine

== ENCOUNTER 2021-12-08 14:58 | Inpatient (IN) ==
[2021-12-08 17:02] LABS: Basophils # 0.1 10*3/uL (0.0-0.2); Eosinophils # 0.2 10*3/uL (0.0-0.87); Eosinophils % 1.9 % (0.00-10.9); Hematocrit 31.4 VOL% (42.0-52.0); Hemoglobin 10.2 GM/DL (14.0-18.0); Immature Granulocytes % 1.6 %; Immature Granulocytes Absolute 0.14 #; Lymphocytes # 0.3 10*3/uL (1.4-4.0); Lymphocytes % 3.7 % (21.2-54.2); Mean Corpuscular HGB Conc 32.5 GM/DL (32-36); Mean Corpuscular Volume 84.2 FL (87-102); Mean Platelet Volume 8.6 FL (9.6-12.0); Monocytes % 7.6 % (1.7-12.7); Neutrophils % 84.2 % (38.7-73.9); Platelet Count 143 T/CUMM (130-400); Red Blood Count 3.73 MC/CUMM (3.8-5.5); Red Cell Distribution Width 19.5 % (9.3-17.3); White Blood Count 8.8 T/CUMM (4-12)
[2021-12-08] MEDS ORDERED: GLUCAGON 1 MG VIAL IM PRN (17:30)
[2021-12-08] MEDS ORDERED: HEPARIN 5,000 UNIT/1 ML VIAL SUBCUT SCH (17:30)
[2021-12-08] MEDS ORDERED: ONDANSETRON 4 MG/2 ML VIAL IV PRN (17:30)
[2021-12-08 17:31] LABS: Eosinophils 1 % (0-10); Lymphocytes 1 % (20-55); Segmented Neutrophils 92 % (50-85); Total Cells Counted 100
[2021-12-08 17:32] LABS: Platelet Estimate Adequate
[2021-12-08 17:33] LABS: Anisocytosis 1+
[2021-12-08 17:34] LABS: Albumin 2.7 G/DL (3.4-5.0); Bilirubin,Total 0.8 MG/DL (0.20-1.00); Calcium 8.2 MG/DL (8.5-10.1); Microcytosis 1+; Osmolality,Calculated 267.9 MOS/KG (273-304); Potassium 4.2 MMOL/L (3.5-5.1); Total Protein 8.1 G/DL (6.4-8.2)
[2021-12-08 17:35] LABS: Polychromasia 1+
[2021-12-08] MEDS ORDERED: DEXTROSE 10% 250 ML BAG IV PRN (17:51)
[2021-12-08] MEDS ORDERED: ROCURONIUM 50 MG/5 ML VIAL IV ONE (18:18)
[2021-12-08] MEDS ORDERED: SUCCINYLCHOLINE 200 MG/10 ML VIAL ONE (18:18)
[2021-12-08] MEDS ORDERED: LIDOCAINE 2% 5 ML VIAL ONE (18:18)
[2021-12-08] MEDS ORDERED: propofoL 200 MG/20 ML VIAL IV ONE (18:18)
[2021-12-08] MEDS ORDERED: fentaNYL 100 MCG/2 ML VIAL ONE (18:18)
[2021-12-08] MEDS ORDERED: MIDAZOLAM 2 MG/2 ML VIAL ONE (18:18)
[2021-12-08] MEDS ORDERED: SEVOFLURANE 1 UNIT/15 MINUTE INH ONE (18:18)
[2021-12-08] MEDS: PIPERACILLIN/TAZOBACTAM 3,375 MG in SODIUM CHLORIDE 0.9% 100 ML IV SCH (18:27)
[2021-12-08] MEDS ORDERED: LIDOCAINE 1%/EPI INJ 20 ML VIAL ONE (18:56)
[2021-12-08] MEDS ORDERED: SODIUM CHLORIDE 0.9% 500 ML IV ONE (19:06)
[2021-12-08] MEDS ORDERED: hydrALAZINE 20 MG/1 ML VIAL IV ONE (19:50)
[2021-12-08] MEDS ORDERED: hydrALAZINE 20 MG/1 ML VIAL IV PRN (19:51)
[2021-12-08] MEDS: MORPHINE 4 MG/1 ML VIAL IV PRN (20:22)
[2021-12-08] MEDS: DEXAMETHASONE 10 MG/1 ML VIAL IV SCH (22:23)
[2021-12-08 23:04] LABS: Arterial Base Excess iSTAT 2 MMOL/L (-2.5-2.5); Arterial Bicarbonate iSTAT 27.7 MMOL/L (20-26); Arterial O2 Saturation iSTAT 100 % (95-100); Arterial PCO2 iSTAT 47 MM HG (35-48); Arterial PO2 iSTAT 243 MM HG (80-95); Arterial Total CO2 iSTAT 29 MMO/L (23-27); Arterial pH iSTAT 7.379 (7.35-7.45)
[2021-12-09] MEDS: carvediloL 25 MG TABLET PO SCH ×2 (00:17→08:37)
[2021-12-09] MEDS: ALBUTEROL/IPRATROPIUM 3 ML NEB RESP TX SCH ×4 (00:19→19:17)
[2021-12-09 03:38] LABS: Basophils % 0.1 % (0.0-0.8); Hematocrit 30.9 VOL% (42.0-52.0); Hemoglobin 9.7 GM/DL (14.0-18.0); Immature Granulocytes % 1.3 %; Immature Granulocytes Absolute 0.09 #; Lymphocytes # 0.2 10*3/uL (1.4-4.0); Lymphocytes % 2.2 % (21.2-54.2); Mean Corpuscular HGB Conc 31.4 GM/DL (32-36); Mean Corpuscular Volume 84.9 FL (87-102); Mean Platelet Volume 9.3 FL (9.6-12.0); Monocytes % 2.1 % (1.7-12.7); Neutrophils % 94.3 % (38.7-73.9); Platelet Count 137 T/CUMM (130-400); Red Blood Count 3.64 MC/CUMM (3.8-5.5); Red Cell Distribution Width 19.2 % (9.3-17.3); White Blood Count 6.7 T/CUMM (4-12)
[2021-12-09 03:51] LABS: Calcium 7.1 MG/DL (8.5-10.1); Osmolality,Calculated 272.8 MOS/KG (273-304); Potassium 5.6 MMOL/L (3.5-5.1)
[2021-12-09] MEDS: DEXAMETHASONE 10 MG/1 ML VIAL IV SCH ×3 (03:59→20:56)
[2021-12-09 04:01] LABS: Hypochromia 1+; Lymphocytes 3 % (20-55); Microcytosis 1+; Segmented Neutrophils 93 % (50-85); Target Cells Slight; Total Cells Counted 100
[2021-12-09 04:02] LABS: Platelet Estimate Adequate
[2021-12-09] MEDS: MORPHINE 4 MG/1 ML VIAL IV PRN ×2 (04:11→07:03)
[2021-12-09 04:59] LABS: Arterial Base Excess iSTAT 1 MMOL/L (-2.5-2.5); Arterial Bicarbonate iSTAT 26.5 MMOL/L (20-26); Arterial O2 Saturation iSTAT 100 % (95-100); Arterial PCO2 iSTAT 44 MM HG (35-48); Arterial PO2 iSTAT 207 MM HG (80-95); Arterial Total CO2 iSTAT 28 MMO/L (23-27); Arterial pH iSTAT 7.385 (7.35-7.45)
[2021-12-09] MEDS: PIPERACILLIN/TAZOBACTAM 3,375 MG in SODIUM CHLORIDE 0.9% 100 ML IV SCH ×2 (05:32→17:28)
[2021-12-09] MEDS: amLODIPine 10 MG TABLET PO SCH (08:37)
[2021-12-09] MEDS ORDERED: ALBUMIN 25% 25 GM/100 ML VIAL IV ONE (11:42)
[2021-12-10] MEDS: carvediloL 25 MG TABLET PO SCH ×3 (00:13→20:05)
[2021-12-10] MEDS: ALBUTEROL/IPRATROPIUM 3 ML NEB RESP TX SCH ×4 (00:47→19:45)
[2021-12-10] MEDS: DEXAMETHASONE 10 MG/1 ML VIAL IV SCH ×3 (03:34→20:07)
[2021-12-10 05:12] LABS: Arterial Base Excess iSTAT 1 MMOL/L (-2.5-2.5); Arterial Bicarbonate iSTAT 25.6 MMOL/L (20-26); Arterial O2 Saturation iSTAT 100 % (95-100); Arterial PCO2 iSTAT 40 MM HG (35-48); Arterial PO2 iSTAT 195 MM HG (80-95); Arterial Total CO2 iSTAT 27 MMO/L (23-27); Arterial pH iSTAT 7.416 (7.35-7.45)
[2021-12-10] MEDS: PIPERACILLIN/TAZOBACTAM 3,375 MG in SODIUM CHLORIDE 0.9% 100 ML IV SCH ×2 (05:13→17:30)
[2021-12-10 06:18] LABS: Calcium 7.8 MG/DL (8.5-10.1); Osmolality,Calculated 277.7 MOS/KG (273-304); Potassium 4.9 MMOL/L (3.5-5.1)
[2021-12-10 06:21] LABS: Basophils % 0.1 % (0.0-0.8); Hematocrit 28.4 VOL% (42.0-52.0); Immature Granulocytes % 0.7 %; Immature Granulocytes Absolute 0.05 #; Lymphocytes # 0.3 10*3/uL (1.4-4.0); Lymphocytes % 3.6 % (21.2-54.2); Mean Corpuscular HGB Conc 31.7 GM/DL (32-36); Mean Corpuscular Volume 83.8 FL (87-102); Mean Platelet Volume 9.2 FL (9.6-12.0); Neutrophils % 91.6 % (38.7-73.9); Platelet Count 166 T/CUMM (130-400); Red Blood Count 3.39 MC/CUMM (3.8-5.5); Red Cell Distribution Width 19.6 % (9.3-17.3)
[2021-12-10 06:55] LABS: Band Neutrophils 1 % (0-10); Hypochromia 1+; Lymphocytes 3 % (20-55); Microcytosis 1+; Nucleated Red Blood Cells 1 (0-5); Segmented Neutrophils 93 % (50-85); Target Cells Slight; Total Cells Counted 100
[2021-12-10 06:56] LABS: Ovalocytes Slight; Platelet Estimate Adequate
[2021-12-10] MEDS: amLODIPine 10 MG TABLET PO SCH (08:02)
[2021-12-11] MEDS: ALBUTEROL/IPRATROPIUM 3 ML NEB RESP TX SCH ×4 (01:43→19:31)
[2021-12-11] MEDS: DEXAMETHASONE 10 MG/1 ML VIAL IV SCH ×3 (04:05→21:20)
[2021-12-11] MEDS: PIPERACILLIN/TAZOBACTAM 3,375 MG in SODIUM CHLORIDE 0.9% 100 ML IV SCH ×3 (06:14→17:01)
[2021-12-11 06:47] LABS: Basophils % 0.1 % (0.0-0.8); Hematocrit 30.7 VOL% (42.0-52.0); Hemoglobin 9.7 GM/DL (14.0-18.0); Immature Granulocytes % 0.6 %; Immature Granulocytes Absolute 0.06 #; Lymphocytes # 0.2 10*3/uL (1.4-4.0); Mean Corpuscular HGB Conc 31.6 GM/DL (32-36); Mean Corpuscular Volume 83.7 FL (87-102); Mean Platelet Volume 9.6 FL (9.6-12.0); Monocytes % 2.7 % (1.7-12.7); Neutrophils % 94.6 % (38.7-73.9); Platelet Count 203 T/CUMM (130-400); Red Blood Count 3.67 MC/CUMM (3.8-5.5); White Blood Count 10.7 T/CUMM (4-12)
[2021-12-11 06:56] LABS: Calcium 7.3 MG/DL (8.5-10.1); Osmolality,Calculated 283.4 MOS/KG (273-304); Potassium 4.5 MMOL/L (3.5-5.1)
[2021-12-11 07:09] LABS: Anisocytosis 2+; Band Neutrophils 3 % (0-10); Lymphocytes 1 % (20-55); Ovalocytes 1+; Platelet Estimate Normal; Segmented Neutrophils 93 % (50-85); Tear Drop Cells Few; Total Cells Counted 100
[2021-12-11 07:10] LABS: Macrocytosis Slight
[2021-12-11] MEDS: INSULIN REGULAR 100 UNIT/ML SUBCUT SCH ×4 (08:08→21:20)
[2021-12-11] MEDS: carvediloL 25 MG TABLET PO SCH ×2 (08:08→21:20)
[2021-12-11] MEDS: amLODIPine 10 MG TABLET PO SCH ×2 (08:08→21:20)
[2021-12-11] MEDS: SEVELAMER CARBONATE 800 MG TABLET PO SCH ×4 (08:08→22:20)
[2021-12-11] MEDS: BACITRACIN OINT 0.9 GM PACK TOP SCH ×2 (16:09→21:20)
[2021-12-12] MEDS: ALBUTEROL/IPRATROPIUM 3 ML NEB RESP TX SCH ×2 (00:58→07:10)
[2021-12-12] MEDS: DEXAMETHASONE 10 MG/1 ML VIAL IV SCH ×2 (05:00→12:20)
[2021-12-12] MEDS: PIPERACILLIN/TAZOBACTAM 3,375 MG in SODIUM CHLORIDE 0.9% 100 ML IV SCH (05:00)
[2021-12-12 05:34] LABS: Basophils % 0.2 % (0.0-0.8); Hematocrit 30.1 VOL% (42.0-52.0); Hemoglobin 9.6 GM/DL (14.0-18.0); Immature Granulocytes % 1.3 %; Immature Granulocytes Absolute 0.14 #; Lymphocytes # 0.3 10*3/uL (1.4-4.0); Lymphocytes % 2.9 % (21.2-54.2); Mean Corpuscular HGB Conc 31.9 GM/DL (32-36); Mean Corpuscular Volume 84.1 FL (87-102); Mean Platelet Volume 10.2 FL (9.6-12.0); Monocytes % 4.4 % (1.7-12.7); NRBC # 0.04 10*3/uL; Neutrophils % 91.2 % (38.7-73.9); Platelet Count 229 T/CUMM (130-400); Red Blood Count 3.58 MC/CUMM (3.8-5.5); Red Cell Distribution Width 18.7 % (9.3-17.3); White Blood Count 11.2 T/CUMM (4-12)
[2021-12-12 05:47] LABS: Calcium 7.6 MG/DL (8.5-10.1); Osmolality,Calculated 285.9 MOS/KG (273-304); Potassium 4.3 MMOL/L (3.5-5.1)
[2021-12-12 06:40] LABS: Hypochromia 1+; Lymphocytes 3 % (20-55); Microcytosis 1+; Segmented Neutrophils 95 % (50-85); Total Cells Counted 100
[2021-12-12 06:41] LABS: Ovalocytes Few; Platelet Estimate Normal; Target Cells Slight
[2021-12-12] MEDS: INSULIN REGULAR 100 UNIT/ML SUBCUT SCH ×2 (10:14→12:20)
[2021-12-12] MEDS: BACITRACIN OINT 0.9 GM PACK TOP SCH ×2 (10:15→14:00)
[2021-12-12] MEDS: amLODIPine 10 MG TABLET PO SCH (10:15)
[2021-12-12] MEDS: carvediloL 25 MG TABLET PO SCH (10:15)
[2021-12-12] MEDS: SEVELAMER CARBONATE 800 MG TABLET PO SCH ×2 (10:15→12:20)
[2021-12-12 14:46] VITALS: BP 176/98
[2021-12-13] MEDS ORDERED: minoxidiL 2.5 MG TABLET PO SCH (09:00)
== END 2021-12-12 14:10 | disposition home or self-care (01) | DRG 157 ==
LOC: N.ED 14:58 → SUATTDRO 17:30 → N.EDINP 17:30 → N.ICU 19:23 → N.3E 12-11 10:59
PROVIDERS: ADMIT Internal Medicine; ATTEND Internal Medicine